=== PATIENT | female | born 1940 | race Caucasian/White ===

== ENCOUNTER 2018-01-30 11:56 | Outpatient (CLI) | payer MEDICARE, OTHER, SELFPAY ==
--- NOTE | 2018-01-30 11:57 | DI.RAD.S_ITS ---
PROCEDURE: PAIN L/S TRANSFORAMINAL INJECT INDICATIONS: Right L4/5 Radiculopathy with HNP FINDINGS: Fluoroscopic spot filming was performed to verify placement of spinal needles at the right L4-5 nerve root level(s), as labeled on the films. Appropriate location(s) of the needle tip(s) was confirmed by injection of iodinated contrast. IMPRESSION: Successful right L4 V nerve root localization. Dictated by: Marcos Torres M.D. on 01/30/2018 at 15:35 Approved by: Marcos Torres M.D. on 01/30/2018 at 15:36
[2018-01-30 12:52] VITALS: BP 192/84; PULSE 81; RESP 18; TEMP 36.1; O2SAT 98
--- NOTE | 2018-01-30 13:06 | P.PCN_ITS ---
Procedures Date/Time Date of procedure: 01/30/18 Time of procedure: 13:04 General Procedure description: PREOP DIAGNOSIS 1. FORMAINAL STENOSIS WITH LE SYMPTOMS POST OP DIAGNOSIS 1. FORMAINAL STENOSIS WITH LE SYMPTOMS PROCEDURES 1. FLUOROSCOPICALLY GUIDED CONTRAST CONTROLLED TRANSFORAMINAL EPIDURAL STEROID INJECTION - RIGHT L4/5 TFESI PHYSICIAN: Duglas Coleman DO INDICATIONS: Kiley is referred by LUIS MIGUEL Sandoval for treatment of Foraminal Stenosis with Right LE Symptoms FINDINGS Foraminal Nerve Root Compression secondary to disc disease and facet hypertrophy DESCRIPTION OF PROCEDURE: Following denial of allergy and review of potential side effects and complications, including, but not necessarily limited to, infection, allergic reaction, local tissue breakdown, stroke, temporary or permanent nerve injury, paralysis, and possible , the patient indicated that the patient understood and agreed to proceed. An informed consent document was signed by the patient, witnessed by a nurse, and placed in the patient's chart. Additionally, other treatment options including medications, modalities, and physical therapy were reviewed with the patient. In the prone position following sterile prep and drape of the lumbar region, the Right L4/5 posterior neuroforamen was identified fluoroscopically. The skin was anesthetized via a 25-gauge 1.5-inch needle with 1% lidocaine solution. At this point, a 25-gauge 3.5-inch spinal needle was atraumatically introduced and advanced under fluoroscopic guidance through the posterior Right L4/5 neuroforamen to approximately the anterior aspect of the canal. Depth was confirmed on lateral view. Following negative aspiration, injection of approximately 1.5 cc of Isovue 200 under live fluoroscopy in the AP view confirmed excellent flow along the nerve root, into the epidural space without vascular or intrathecal uptake observed Radiological data, including multiple fluoroscopic views of the lumbosacral spine, reveal a spinal needle at the Left L4/5 posterior neuroforamen. Subsequent views show flow of contrast material flowing superiorly and inferiorly along the nerve root confirming epidural flow. Subsequently, a test dose of 1.5 cc of 1% lidocaine solution was administered and patient was observed for two minutes for signs or symptoms of complications , including abdominal pain, shortness of breath, bilateral upper or lower extremity weakness, nausea and vomiting, prior to steroid injection. At this point, a total of 3 cc or 20 mg of dexamethasone and 80mg Depo Medrol was injected without incident. The patient was then transferred to the recovery area where they were observed for an appropriate time after the injection. The patient reported a VAS score of 7 prior to the procedure and a post-procedure VAS of 0. Total Fluoroscopy Time: 20.9 seconds Total Conscious Sedation Time: 24min POST OP INSTRUCTIONS The patient was provided a Pain Log to continue to record their response to the target-specific procedure prior to follow-up visit with their referring physician. Additionally, specific post-injection care instructions and a contact number to our office were provided if concerns arise regarding possible complications associated with the procedure are suspected. Duglas Coleman DO Complications: none
[2018-01-30 13:10] VITALS: BP 176/91; PULSE 79; RESP 21; O2SAT 100
[2018-01-30 13:16] VITALS: BP 180/87; PULSE 75; RESP 20; O2SAT 100
[2018-01-30] MEDS: BUPIVACAINE 0.25% (PF) 30 ML VIAL INJ (13:20)
[2018-01-30] MEDS: IOPAMIDOL 15 ML VIAL 3 ML INJ (13:20)
[2018-01-30] MEDS: methylPREDNISolone acetate 80 MG/ML VIAL INJ (13:20)
[2018-01-30] MEDS: DEXAMETHASONE 10 MG/ML VIAL 20 MG INJ (13:20)
[2018-01-30 13:21] VITALS: BP 162/67; PULSE 78; RESP 20; O2SAT 100
[2018-01-30 13:35] VITALS: BP 182/77; PULSE 70; RESP 20; O2SAT 100
[2018-01-30 13:42] VITALS: BP 182/95; PULSE 75; RESP 20; O2SAT 100
== END 2018-01-30 14:43 ==
LOC: RAD 11:56
PROVIDERS: PCP Physician Assistant Medical; Visit Provider Physical Medicine & Rehabilitation
DX: M48.061 Spinal stenosis, lumbar region without neurogenic claudication (principal); M54.17 Radiculopathy, lumbosacral region; M51.26 Other intervertebral disc displacement, lumbar region
CPT/HCPCS: 64483; J1040; J1100; J2250

== ENCOUNTER → 2018-06-13 18:04 | Outpatient (CLI) | payer MEDICARE, OTHER, SELFPAY ==
--- NOTE | 2018-06-13 18:11 | DI.MRI.S_ITS ---
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 In cases with scoliosis, additional coronal T2 fast spin echo may be performed. COMPARISON: [facility], , L-SPINE WITHOUT CONTRAST, 01/13/2017, 13:20. FINDINGS: Image quality: Excellent. Alignment and Curvature: There is normal bony alignment. Bone Marrow: Marrow is of normal overall signal. No acute vertebral body compression fractures. Spinal Cord: Conus medullaris terminates at the L1 level. Visualized cord demonstrates normal signal and size. Paraspinous Soft Tissues: No paravertebral masses. T12-L1: Normal appearance. L1-L2: Mild loss of disc height is seen. Loss of disc signal is seen. Mild to moderate disc bulge is seen, with a mild central disc protrusion. Minimal bilateral neural foraminal narrowing is seen. Minimal to mild central canal narrowing is seen. Stable from the prior study. L2-L3: Mild loss of disc height is seen. Loss of disc signal is seen. Moderate disc bulge is seen, with a mild central disc protrusion. There is mild to moderate bilateral neural foraminal narrowing seen. Moderate central canal narrowing is seen. A faintly seen annular fissure is present posteriorly, as on series 4 image 9. When comparison is made with the prior examination, these findings are similar. L3-L4: The disc height is well-preserved. Loss of disc signal is seen at this level. An annular fissure is present posteriorly, as on series 4 image 9. Moderate generalized disc bulge is seen. Moderate facet joint hypertrophy is seen. There is mild to moderate left-sided and mild right-sided neural foraminal narrowing seen. Moderate central canal narrowing is seen. Stable from the prior study. L4-L5: Moderate loss of disc height is seen. Loss of disc signal is seen. Moderate disc bulge is seen, which is eccentric to the right. There is a central disc extrusion seen, with inferior migration of disc material. There is an associated annular fissure seen, as on series 4 image 10. Moderate facet joint hypertrophy is seen. There is associated hypertrophy of the ligamentum flavum. There is moderate left-sided and moderate to severe right-sided neural foraminal narrowing seen. There is a degree of impingement seen upon the exiting right L4 nerve root. Moderate to severe central canal narrowing is seen. When compared to the prior examination, these findings are similar. L5-S1: The disc height is well-preserved. Loss of disc signal is seen at this level. Mild generalized disc bulge is seen. Mild to moderate facet hypertrophy is seen. No significant neural foraminal or central canal narrowing are seen. Stable from the prior study. IMPRESSION: Multiple levels of lumbar spine degenerative changes are seen, which are not significantly progressed compared to the prior MRI. Dictated by: Luiz Baron M.D. on 06/14/2018 at 8:24 Approved by: Luiz Baron M.D. on 06/14/2018 at 8:30
== END ==
PROVIDERS: Family Provider Physician Assistant Medical; PCP Physician Assistant Medical; Visit Provider Physical Medicine & Rehabilitation
DX: M51.26 Other intervertebral disc displacement, lumbar region (principal)
CPT/HCPCS: 72148

== ENCOUNTER → 2018-07-20 15:58 | Outpatient (CLI) | payer MEDICARE, OTHER, SELFPAY ==
--- NOTE | 2018-07-20 16:02 | DI.RAD.S_ITS ---
PROCEDURE: XR HIP W PEL IF DONE RT 2V INDICATIONS: OTHER SPONDYLOSIS WITH MYLEPOTHY CERVICAL REGION TECHNIQUE: AP pelvis with lateral view(s) of the right hip(s). COMPARISON: None. FINDINGS: Bones: No fractures or dislocations. Pelvic ring appears intact. No suspicious bony lesions. There is mild narrowing of the bilateral hip joints. Soft tissues: The visualized bowel gas pattern is normal. No suspicious soft tissue calcifications. IMPRESSION: Mild degenerative change. Dictated by: Peggy Zhu M.D. on 07/20/2018 at 16:56 Approved by: Peggy Zhu M.D. on 07/20/2018 at 16:57
--- NOTE | 2018-07-20 16:03 | DI.MRI.S_ITS ---
PROCEDURE: MR CERVICAL SPINE WO CON INDICATIONS: OTHER SPONDYLOSIS WITH MYLOPATHY CERVICAL REGION TECHNIQUE: Noncontrast sagittal T1 spin echo and T2 fast spin echo, sagittal STIR, foraminal oblique sagittal T2 fast spin echo, and axial gradient echo or T2 fast spin echo through the cervical spine. COMPARISON: [facility], MR, MR LUMBAR SPINE WO CON, 06/13/2018, 18:42. FINDINGS: Image quality: Excellent. Alignment and Curvature: There is normal bony alignment. Bone Marrow: Marrow demonstrates normal overall signal. Spinal Cord: Visualized spinal cord has normal size and signal. No cerebellar tonsillar herniation. Paraspinous Soft Tissues: No paravertebral masses. Prevertebral soft tissues are normal in thickness. C2-C3: The disc height is well-preserved. Loss of disc signal is seen at this level. There is minimal disc osteophyte complex seen, the central disc osteophyte protrusion, as on series 4 image 13. There is mild left-sided and no right-sided neural foraminal narrowing seen. No significant central canal narrowing is seen. C3-C4: Normal appearance. C4-C5: The disc height is well-preserved. Loss of disc signal is seen at this level. A mild degree of generalized disc osteophyte complex is seen. Mild facet joint hypertrophy is seen. There is mild right-sided and no left-sided neural foraminal narrowing seen. No central canal narrowing is seen. C5-C6: Mild loss of disc height is seen. Loss of disc signal is seen. A mild degree of generalized disc osteophyte complex is seen. Mild facet joint hypertrophy is seen. There is moderate to severe bilateral neural foraminal narrowing seen. Mild central canal narrowing is seen. C6-C7: The disc height is well-preserved. Loss of disc signal is seen at this level. Mild to moderate disc osteophyte complex is seen. Bhyw-wn-sbohjzxt facet hypertrophy is seen. There is mild to moderate left-sided and no significant right-sided neural foraminal narrowing seen. Mild central canal narrowing is seen. C7-T1: Normal appearance. IMPRESSION: Cervical spine degenerative changes are seen, which are most prominent at the C5-C6 level, where there is moderate to severe bilateral neural foraminal narrowing seen. Dictated by: Luiz Baron M.D. on 07/20/2018 at 16:09 Approved by: Luiz Baron M.D. on 07/20/2018 at 16:13
== END ==
PROVIDERS: PCP Physician Assistant Medical; Visit Provider Neurological Surgery
DX: M47.12 Other spondylosis with myelopathy, cervical region (principal); M50.022 Cervical disc disorder at C5-C6 level with myelopathy; M48.02 Spinal stenosis, cervical region; M16.0 Bilateral primary osteoarthritis of hip
CPT/HCPCS: 72141; 73502

== ENCOUNTER → 2018-11-07 12:16 | Outpatient (CLI) | payer MEDICARE, OTHER, SELFPAY ==
--- NOTE | 2018-11-07 | DI.MRI.S_ITS ---
PROCEDURE: MR LUMBAR SPINE WO CON INDICATIONS: Radiculopathy, lumbar region TECHNIQUE: Noncontrast sagittal T1 spin echo and T2 fast echo, sagittal STIR, axial T1 and T2 fast spin echo through the lumbar spine. In cases with scoliosis, additional coronal T2 fast spin echo may be performed. COMPARISON: [facility], MR, MR LUMBAR SPINE WO CON, 06/13/2018, 18:42. FINDINGS: Image quality: Excellent. Alignment and Curvature: Trace retrolisthesis of L3 on L4.. Bone Marrow: Marrow is of normal overall signal. No acute vertebral body compression fractures. Spinal Cord: Conus medullaris terminates at the L1 level. Visualized cord demonstrates normal signal and size. Paraspinous Soft Tissues: No paravertebral masses. Postsurgical changes related to right L4-L5 laminotomy. There is nonspecific, dependent posterior subcutaneous soft tissue edema from level of L2-L5. L1-L2: Broad-based posterior disc bulge bilateral facet arthropathy. No high-grade canal stenosis. Lateral recesses appear patent bilaterally. No foraminal narrowing. L2-L3: Broad-based posterior disc bulge bilateral facet arthropathy with mild canal stenosis. Moderate effacement of both lateral recesses although symmetric appearance and appears grossly unchanged. Mild left foraminal narrowing. No definite right foraminal stenosis L3-L4: Broad-based posterior disc bulge and bilateral facet arthropathy with ligamentum flavum hypertrophy. Mild canal narrowing which appears grossly unchanged. Feep-yp-lmsjphks effacement of both lateral recesses appear symmetric and grossly unchanged. Mild right and xywr-jq-rdvbnmpy left foraminal narrowing, no interval change. L4-L5: Broad-based posterior disc bulge bilateral facet arthropathy. Improved appearance with mild residual canal narrowing. There is also improved appearance of the lateral recesses although some partial effacement remains, left slightly greater than right. Moderate right and mild left foraminal stenoses, no interval change L5-S1: Mild broad-based posterior disc bulge and bilateral facet arthropathy. No high-grade canal stenosis. Lateral recesses appear patent. No definite foraminal narrowing. IMPRESSION: Interval postsurgical changes related to L4-L5 right laminotomy. Improved L4-L5 central canal and subarticular narrowing since prior study. Remainder of the examination grossly unchanged since 06/13/18. Dictated by: Carlos Benitez M.D. on 11/07/2018 at 13:37 Approved by: Carlos Benitez M.D. on 11/07/2018 at 13:48
== END ==
PROVIDERS: PCP Physician Assistant Medical
DX: M51.16 Intervertebral disc disorders with radiculopathy, lumbar region (principal); M51.17 Intervertebral disc disorders with radiculopathy, lumbosacral region; M47.26 Other spondylosis with radiculopathy, lumbar region; M47.27 Other spondylosis with radiculopathy, lumbosacral region; M48.061 Spinal stenosis, lumbar region without neurogenic claudication
CPT/HCPCS: 72148

== ENCOUNTER 2018-12-12 07:44 | Day surgery (SDC) | payer MEDICARE, OTHER, SELFPAY ==
--- NOTE | 2018-12-06 17:05 | PM.PREOP ---
Pre-operative Note Interval Note History & Physical reviewed/Exam performed by Physician: Yes Changes to H&P: No
--- NOTE | 2018-12-12 08:08 | PM.OP.1 ---
Operative Date/Time/Diagnoses Date of procedure: 12/12/18 Time of procedure: 09:45 Procedure & Clinicians Procedure: Preoperative diagnoses: 1. Left nuclear sclerotic cataract 2. Astigmatism which is to be corrected with a toric intraocular lens implant. 3. HTN Postoperative diagnoses: 1. Cataract removal with phacoemulsification with toric posterior chamber intraocular lens implant placed. Procedure: Phacoemulsification with posterior chamber toric intraocular lens implant. Surgeon: Kiley Meza MD Complications: None Specimen: None Implant: [id number]+22.5 [place] 130 Blood loss: None Anesthesia: Retrobulbar with monitored standby Description of procedure: Patient presents with a complaint of decreased vision due to cataract which is affecting activities of daily living. The patient wants surgery to improve vision and astigmatism. The patient was taken to the operating room and proparacaine drops placed. Indelible ink read were placed at the 90 and 180 degree meridian. The patient was placed on the operating room table and given IV sedation. A retrobulbar block insert consisting of 6 cc of 2% xylocaine without epinephrine mixed half and half with 0.5% Marcaine with 1 cc of hyaluronidase added is placed between the medial and lateral 1/3 of the inferior orbital rim. Lid akinesia is obtain with 1% xylocaine with epinephrine infiltrated along the lid margin. The eye is manually massaged for 30 sec, prepped using Betadine solution, and draped in the usual sterile fashion. Temporal approach was made, a 1 mm side-port incision was made 90? from the proposed corneal wound. Phenylephrine 1.5% mixed with 1% xylocaine 0.2 cc was placed into the anterior chamber. Viscoat followed by Luz was then placed. A 2.6 mm clear incision with a 2.6 mm blade was placed at the 170 degree meridian. A 360 degree capsulorrhexis style capsulotomy was then performed with a cystitome needle on a Healon. Hydrodelineation and hydrodissection were performed. The phacoemulsification unit is introduced, and sculpting used to groove the central lens. It is then removed in chopping mode. Epi nucleus is removed with epinuclear mode and irrigation aspiration was used to remove the peripheral cortex. The posterior capsule is polished. The intraocular lens is selected, inspected, power confirmed, and placed in the posterior chamber at the desired meridian of 130 degrees.. The pupil was not constricted. The wound was stromally hydrated and tested for leaks, there was none and it was left sutureless. Vigamox 0.1 cc was placed into the anterior chamber. Kenalog 0.2 cc was placed in the superior subconjunctival space. A drop of antibiotic and was placed and the eye was patched and shielded. The patient was stable and returned to the recovery room in excellent condition. Dictated by: Kiley Meza MD Copy to: [facility]
[2018-12-12 08:52] VITALS: BP 162/75; PULSE 73; RESP 16; TEMP 36.6; O2SAT 100; BMI 22.4
[2018-12-12] MEDS: PROPARACAINE 0.5% OPHTH SOL 2 DROPS EYE-OP ×2 (08:52→10:21)
[2018-12-12] MEDS: CATARACT EYE COMPOUND (10 DROPS/SYRINGE) 3 DROPS EYE-OP (08:54)
[2018-12-12] MEDS: HYALURONATE SODIUM 10 MG/ML SYRINGE INJ (10:17)
[2018-12-12] MEDS: CHONDROIDTIN/SOD HYALURONATE 1.05 ML SYRINGE INTRAOCULA (10:17)
[2018-12-12] MEDS: BALANCED SALT IRRIG SOLN NO.2 15 ML IRR (10:17)
[2018-12-12] MEDS: LIDOCAINE 1% W/EPI INJ 20 ML INJ (10:17)
[2018-12-12] MEDS: MOXIFLOXACIN OPHTH DROPS 3 ML BOTTLE 2 DROPS INJ (10:17)
[2018-12-12] MEDS: PHENYLEPHRINE/LIDOCAINE VIAL (OR) 0.2 ML EYE-OP (10:18)
[2018-12-12] MEDS: NEOMYCIN/POLY/DEX OPHTH OINT 1 APPLIC EYE-LEFT (10:18)
[2018-12-12] MEDS: OFLOXACIN 0.3% OPHTH 5 ML 2 DROPS EYE-LEFT (10:18)
[2018-12-12] MEDS: LIDOCAINE 2% 4 ML, BUPIVACAINE 0.5% (PF) 4 ML, HYALURONIDASE 150 UNIT INJ (10:19)
[2018-12-12] MEDS: TRIAMCINOLONE 50 MG/5 ML VIAL INJ (10:19)
[2018-12-12] MEDS: BALANCED SALT IRRIG SOLN NO.2 500 ML, EPINEPHrine 1 MG IRR (10:20)
[2018-12-12 10:51] VITALS: BP 176/79; PULSE 74; RESP 16; TEMP 36; O2SAT 100
== END 2018-12-12 10:57 | disposition home or self-care (01) ==
LOC: OR 07:46
PROVIDERS: PCP Physician Assistant Medical; Visit Provider Ophthalmology
DX: H25.12 Age-related nuclear cataract, left eye (principal); H52.202 Unspecified astigmatism, left eye; I10 Essential (primary) hypertension
CPT/HCPCS: J0171; J2704; J3301; J3470; V2787

== ENCOUNTER 2018-12-26 07:37 | Day surgery (SDC) | payer MEDICARE, OTHER, SELFPAY ==
--- NOTE | 2018-12-25 14:09 | PM.PREOP ---
Pre-operative Note Interval Note History & Physical reviewed/Exam performed by Physician: Yes Changes to H&P: No
--- NOTE | 2018-12-26 08:07 | PM.OP.1 ---
Operative Date/Time/Diagnoses Date of procedure: 12/26/18 Time of procedure: 09:45 Procedure & Clinicians Procedure: Preoperative diagnoses: 1. Right nuclear sclerotic cataract 2. Astigmatism which is to be corrected with a toric intraocular lens implant. 3. Hypertension. Postoperative diagnoses: 1. Cataract removal with phacoemulsification with toric posterior chamber intraocular lens implant placed. Procedure: Phacoemulsification with posterior chamber toric intraocular lens implant. Surgeon: Kiley Meza MD Complications: None Specimen: None Implant: [id number] +23.5 [place] 050. Blood loss: None Anesthesia: Retrobulbar with monitored standby Description of procedure: Patient presents with a complaint of decreased vision due to cataract which is affecting activities of daily living. The patient wants surgery to improve vision and astigmatism. The patient was taken to the operating room and proparacaine drops placed. Indelible ink read were placed at the 90 and 180 degree meridian. The patient was placed on the operating room table and given IV sedation. A retrobulbar block consisting of 6 cc of 2% xylocaine without epinephrine mixed half and half with 0.5% Marcaine with 1 cc of hyaluronidase added is placed between the medial and lateral 1/3 of the inferior orbital rim. Lid akinesia is obtain with 1% xylocaine with epinephrine infiltrated along the lid margin. The eye is manually massaged for 30 sec, prepped using Betadine solution, and draped in the usual sterile fashion. Temporal approach was made, a 1 mm side-port incision was made 90? from the proposed corneal wound. Phenylephrine 1.5% mixed with 1% xylocaine 0.2 cc was placed into the anterior chamber. Viscoat followed by Luz was then placed. A 2.6 mm clear incision with a 2.6 mm blade was placed at the 170 degree meridian. A 360 degree capsulorrhexis style capsulotomy was then performed with a cystitome needle on a Healon. Hydrodelineation and hydrodissection were performed. The phacoemulsification unit is introduced, and sculpting used to groove the central lens. It is then removed in chopping mode. Epi nucleus is removed with epinuclear mode and irrigation aspiration was used to remove the peripheral cortex. The posterior capsule is polished. The intraocular lens is selected, inspected, power confirmed, and placed in the posterior chamber at the desired meridian of 050 degrees. The pupil was not constricted. The wound was stromally hydrated and tested for leaks, there was none and it was left sutureless. Vigamox 0.1 cc was placed into the anterior chamber. Kenalog 0.2 cc was placed in the superior subconjunctival space. A drop of antibiotic and was placed and the eye was patched and shielded. The patient was stable and returned to the recovery room in excellent condition. Dictated by: Kiley Meza MD Copy to: [facility]
[2018-12-26] MEDS: PROPARACAINE 0.5% OPHTH SOL 2 DROPS EYE-OP (08:50)
[2018-12-26 08:52] VITALS: BP 140/71; PULSE 74; RESP 15; TEMP 36.7; O2SAT 100
[2018-12-26] MEDS: CATARACT EYE COMPOUND (10 DROPS/SYRINGE) 3 DROPS EYE-OP (08:54)
[2018-12-26 08:55] VITALS: BMI 22.2
[2018-12-26] MEDS: BALANCED SALT IRRIG SOLN NO.2 500 ML, EPINEPHrine 1 MG IRR (09:53)
[2018-12-26] MEDS: NEOMYCIN/POLY/DEX OPHTH OINT 1 APPLIC EYE-RIGHT (09:53)
[2018-12-26] MEDS: OFLOXACIN 0.3% OPHTH 5 ML 2 DROPS EYE-RIGHT (09:53)
[2018-12-26] MEDS: CHONDROIDTIN/SOD HYALURONATE 1.05 ML SYRINGE INTRAOCULA (09:54)
[2018-12-26] MEDS: BALANCED SALT IRRIG SOLN NO.2 15 ML IRR (09:54)
[2018-12-26] MEDS: HYALURONATE SODIUM 10 MG/ML SYRINGE INJ (09:54)
[2018-12-26] MEDS: PHENYLEPHRINE/LIDOCAINE VIAL (OR) 0.2 ML EYE-OP (09:57)
[2018-12-26] MEDS: MOXIFLOXACIN OPHTH DROPS 3 ML BOTTLE 2 DROPS INJ (09:58)
[2018-12-26] MEDS: TRIAMCINOLONE 50 MG/5 ML VIAL INJ (09:58)
[2018-12-26] MEDS: LIDOCAINE 2% 4 ML, BUPIVACAINE 0.5% (PF) 4 ML, HYALURONIDASE 150 UNIT INJ (09:59)
[2018-12-26] MEDS: LIDOCAINE 1% W/EPI INJ 20 ML INJ (09:59)
[2018-12-26 10:21] VITALS: BP 140/76; PULSE 68; RESP 15; TEMP 36.3; O2SAT 100
== END 2018-12-26 10:25 | disposition home or self-care (01) ==
LOC: OR 07:40
PROVIDERS: PCP Physician Assistant Medical; Visit Provider Ophthalmology
DX: H25.11 Age-related nuclear cataract, right eye (principal); H52.201 Unspecified astigmatism, right eye; I10 Essential (primary) hypertension
CPT/HCPCS: J0171; J2250; J2704; J3010; J3301; J3470; V2787

== ENCOUNTER 2019-03-19 12:42 | Outpatient (CLI) | payer MEDICARE, OTHER, SELFPAY ==
[2019-03-19] VITALS (7 sets, daily range): BP systolic 153–179; BP diastolic 64–85; PULSE 67–82; RESP 16–18; TEMP 36.3; O2SAT 97–100
--- NOTE | 2019-03-19 12:44 | DI.RAD.S_ITS ---
PROCEDURE: PAIN L/SI FACET INJ/BLK 1STL INDICATIONS: SPONDYLOSIS FINDINGS: Fluoroscopic spot filming was performed to verify placement of spinal needles at the L4-L5 and L5-S1 level(s), as labeled on the films. Appropriate location(s) of the needle tip(s) was confirmed by injection of iodinated contrast. IMPRESSION: Fluoroscopy support for pain management. Dictated by: Phylicia Shen M.D. on 03/19/2019 at 14:44 Approved by: Phylicia Shen M.D. on 03/19/2019 at 14:44
[2019-03-19] MEDS: MIDAZOLAM 5 MG/5 ML VIAL IV (13:59)
[2019-03-19] MEDS: fentaNYL 100 MCG/2 ML INJ 50 MCG IV (13:59)
[2019-03-19] MEDS: IOPAMIDOL 15 ML VIAL 3 ML INJ (14:07)
[2019-03-19] MEDS: BUPIVACAINE 0.5% (PF) VIAL 2 ML INJ (14:07)
[2019-03-19] MEDS: BETAMETHASONE 30 MG/5 ML MDV 12 MG INJ (14:07)
--- NOTE | 2019-03-19 14:08 | PC.NURSE ---
ASSISTING PT OFF TABLE AND TRANSPORTING TO POST PROC AREA IN STABLE CONDITION.
--- NOTE | 2019-03-19 14:11 | PM.PROC.1 ---
Procedures Date/Time Date of procedure: 03/19/19 Time of procedure: 14:11 General Procedure description: PREOP DIAGNOSIS 1. FACET ARTHROPATHY, 2. AXIAL LBP, 3. MULTILEVEL DDD, POST OP DIAGNOSIS 1. FACET ARTHROPATHY, 2. AXIAL LBP, 3. MULTILEVEL DDD, PROCEDURES 1. FLUORSCOPICALLY GUIDED CONTRAST CONTROLLED FACET JOINT INJECTIONS RIGHT L4/5, L5/S1 SURGEON: Duglas Coleman, DO INDICATIONS Kiley is referred by JANINE Sandoval for treatment of Axial LBP FINDINGS Multilevel Facet Arthropathy with Clinically significant axial LBP DESCRIPTION OF PROCEDURE Fluoroscopically guided, contrast-controlled right L4/5, L5/S1 facet joint injections. Following review of allergy and review of potential side effects and complications, including, but not necessarily limited to, infection, allergic reaction, local tissue breakdown, stroke, temporary or permanent nerve injury, paralysis, and possible , the patient indicated that the patient understood and agreed to proceed. An informed consent document was signed by the patient, witnessed by a nurse, and placed in the patient's chart. Additionally, other treatment options including medications, modalities, and physical therapy were reviewed with the patient. After review of previous anaesthesic history and IV conscious sedation the patient was deemed safe to proceed with todays procedure with IV conscious sedation as ASA class II designation. Safety time-out was performed to confirm patient ID, procedure to be performed and site of procedure. IV sedation was accomplished with a combination of 2mg of Versed and 50mcg of Fentanyl was administered by the RN after DO order, titrated to patient comfort during the course of the procedure while the patient remained responsive to all verbal commands. In the prone position, following sterile prep and drape of the lumbar region, the posterior aspect of the right L4/5, L5/S1 facet joints were identified fluoroscopically. The skin was anesthetized via a 25-gauge 1.5-inch needle with 1% lidocaine solution into the corresponding facet joints. At this point, a 22-gauge 3.5-inch spinal needle was atraumatically introduced and advanced under fluoroscopic guidance into the corresponding facet joints. Following negative aspiration, injections of approximately 0.2-cc of Isovue 200 confirmed interarticular placement without vascular uptake. Radiological data, including multiple fluoroscopic views of the lumbosacral spine, reveal a spinal needle at the right L4/5, L5/S1 facet joints. Subsequent views show flow of contrast material both superiorly and inferiorly within the joint space without vascular or intrathecal uptake. At this point, a total of 0.5 cc including a mixture of 0.25cc Marcaine and 0.25cc betamethasone was injected without complication into each of the corresponding facet joints. The procedure tolerated the procedure well without signs or symptoms of complications prior to transfer to the recovery area continued monitoring without incident. The patient was then transferred to the recovery area where they were observed for an appropriate period of time after the injection. The patient reported a VAS score of 7 prior to the procedure and a post-procedure VAS of 0. Total Fluoroscopy Time: 12.7 seconds Total Conscious Sedation Time: 24min POST OP INSTRUCTIONS The patient was provided a Pain Log to continue to record their response to the target-specific procedure prior to follow-up visit with their referring physician. Additionally, specific post-injection care instructions and a contact number to our office were provided if concerns arise regarding possible complications associated with the procedure are suspected. Duglas Coleman, Complications: none
--- NOTE | 2019-03-19 14:15 | PC.NURSE ---
Pt returned from procedure awake and alert via wheelchair, pt able to transfer from w/c to chair with standby assist. Resumed monitoring from Norma HERNANDEZ.
--- NOTE | 2019-03-19 14:36 | P.PCN_ITS ---
Procedures Date/Time Date of procedure: 03/19/19 Time of procedure: 14:11 General Procedure description: PREOP DIAGNOSIS 1. FACET ARTHROPATHY, 2. AXIAL LBP, 3. MULTILEVEL DDD, POST OP DIAGNOSIS 1. FACET ARTHROPATHY, 2. AXIAL LBP, 3. MULTILEVEL DDD, PROCEDURES 1. FLUORSCOPICALLY GUIDED CONTRAST CONTROLLED FACET JOINT INJECTIONS RIGHT L4/5, L5/S1 SURGEON: Duglas Coleman, DO INDICATIONS Kiley is referred by JANINE Sandoval for treatment of Axial LBP FINDINGS Multilevel Facet Arthropathy with Clinically significant axial LBP DESCRIPTION OF PROCEDURE Fluoroscopically guided, contrast-controlled right L4/5, L5/S1 facet joint in jections. Following review of allergy and review of potential side effects and complications, including, but not necessarily limited to, infection, allergic reaction, local tissue breakdown, stroke, temporary or permanent nerve injury, paralysis, and possible , the patient indicated that the patient understood and agreed to proceed. An informed consent document was signed by the patient, witnessed by a nurse, and placed in the patient's chart. Additionally, other treatment options including medications, modalities, and physical therapy were reviewed with the patient. After review of previous anaesthesic history and IV conscious sedation the patient was deemed safe to proceed with todays procedure with IV conscious sedation as ASA class II designation. Safety time-out was performed to confirm patient ID, procedure to be performed and site of procedure. IV sedation was accomplished with a combination of 2mg of Versed and 50mcg of Fentanyl was administered by the RN after DO order, titrated to patient comfort during the course of the procedure while the patient remained responsive to all verbal commands. In the prone position, following sterile prep and drape of the lumbar region, the posterior aspect of the right L4/5, L5/S1 facet joints were identified fluoroscopically. The skin was anesthetized via a 25-gauge 1.5-inch needle with 1% lidocaine solution into the corresponding facet joints. At this point, a 22- gauge 3.5-inch spinal needle was atraumatically introduced and advanced under fluoroscopic guidance into the corresponding facet joints. Following negative aspiration, injections of approximately 0.2-cc of Isovue 200 confirmed interarticular placement without vascular uptake. Radiological data, including multiple fluoroscopic views of the lumbosacral spine, reveal a spinal needle at the right L4/5, L5/S1 facet joints. Subsequent views show flow of contrast material both superiorly and inferiorly within the joint space without vascular or intrathecal uptake. At this point, a total of 0.5 cc including a mixture of 0.25cc Marcaine and 0.25cc betamethasone was injected without complication into each of the corresponding facet joints. The procedure tolerated the procedure well without signs or symptoms of complications prior to transfer to the recovery area continued monitoring without incident. The patient was then transferred to the recovery area where they were observed for an appropriate period of time after the injection. The patient reported a VAS score of 7 prior to the procedure and a post-procedure VAS of 0. Total Fluoroscopy Time: 12.7 seconds Total Conscious Sedation Time: 24min POST OP INSTRUCTIONS The patient was provided a Pain Log to continue to record their response to the target-specific procedure prior to follow-up visit with their referring physician. Additionally, specific post-injection care instructions and a contact number to our office were provided if concerns arise regarding possible comp lications associated with the procedure are suspected. Duglas Coleman DO Complications: none
== END 2019-03-19 14:35 ==
LOC: RAD 12:43
PROVIDERS: PCP Physician Assistant Medical; Visit Provider Physical Medicine & Rehabilitation
DX: M47.817 Spondylosis without myelopathy or radiculopathy, lumbosacral region (principal); M47.27 Other spondylosis with radiculopathy, lumbosacral region; M96.1 Postlaminectomy syndrome, not elsewhere classified
CPT/HCPCS: 64493; 64494; 99152; J0702; J2250; J3010

== ENCOUNTER 2019-05-02 12:51 | Outpatient (CLI) | payer MEDICARE, OTHER, SELFPAY ==
[2019-05-02] VITALS (8 sets, daily range): BP systolic 147–179; BP diastolic 43–87; PULSE 66–80; RESP 16; TEMP 36.1; O2SAT 97–100
--- NOTE | 2019-05-02 12:53 | DI.RAD.S_ITS ---
PROCEDURE: PAIN L/S TRANSFORAMINAL INJECT INDICATIONS: INTERVERTEBRAL DISC DISPLACEMENT FINDINGS: Fluoroscopic spot filming was performed to verify placement of spinal needles at the L5-S1 level(s), as labeled on the films. Appropriate location(s) of the needle tip(s) was confirmed by injection of iodinated contrast. IMPRESSION: Fluoroscopy for pain management. Dictated by: Phylicia Shen M.D. on 05/02/2019 at 14:50 Approved by: Phylicia Shen M.D. on 05/02/2019 at 14:50
--- NOTE | 2019-05-02 13:09 | P.PCN_ITS ---
Procedures Date/Time Date of procedure: 05/02/19 Time of procedure: 14:07 General Procedure description: PREOP DIAGNOSIS 1. FORMAINAL STENOSIS WITH LE SYMPTOMS, POST OP DIAGNOSIS 1. FORMAINAL STENOSIS WITH LE SYMPTOMS, PROCEDURES 1.FLUOROSCOPICALLY GUIDED CONTRAST CONTROLLED TRANSFORAMINAL EPIDURAL STEROID INJECTION - RIGHT L5/S1 TFESI PHYSICIAN: Duglas Coleman DO INDICATIONS: Kiley is referred by JANINE Sandoval for treatment of Foraminal Stenosis with right LE Symptoms FINDINGS Foraminal Nerve Root Compression secondary to disc disease and facet hypertrophy DESCRIPTION OF PROCEDURE Following review of allergy and review of potential side effects and complications, including, but not necessarily limited to, infection, allergic reaction, local tissue breakdown, stroke, temporary or permanent nerve injury, paralysis, and possible , the patient indicated that the patient understood and agreed to proceed. An informed consent document was signed by the patient, witnessed by a nurse, and placed in the patient's chart. Additionally, other treatment options including medications, modalities, and physical therapy were reviewed with the patient. After review of previous anaesthesic history and IV conscious sedation the patient was deemed safe to proceed with todays procedure with IV conscious sedation as ASA class II designation. Safety time-out was performed to confirm patient ID, procedure to be performed and site of procedure. IV sedation was accomplished with a combination of 2mg of Versed and 50mcg of Fentanyl was administered by the RN after DO order, titrated to patient comfort during the course of the procedure while the patient remained responsive to all verbal commands In the prone position following sterile prep and drape of the lumbar region, the right L5/S1 posterior neuroforamen was identified fluoroscopically. The skin was anesthetized via a 25-gauge 1.5-inch needle with 1% lidocaine solution. At this point, a 25-gauge 3.5-inch spinal needle was atraumatically introduced and advanced under fluoroscopic guidance through the posterior right L5/S1 neuroforamen to approximately the anterior aspect of the canal. Depth was confirmed on lateral view. Following negative aspiration, injection of approximately 1.5 cc of Isovue 200 under live fluoroscopy in the AP view confirmed excellent flow along the nerve root, into the epidural space without vascular or intrathecal uptake observed Radiological data, including multiple fluoroscopic views of the lumbosacral spine, reveal a spinal needle at the right L5/S1 posterior neuroforamen. Subsequent views show flow of contrast material flowing superiorly and inferiorly along the nerve root confirming epidural flow. Subsequently, a test dose of 1.5 cc of 1% lidocaine solution was administered and patient was observed for two minutes for signs or symptoms of complications, including abdominal pain, shortness of breath, bilateral upper or lower extremity weakness, nausea and vomiting, prior to steroid injection. At this po int, a total of 2cc or 20mg of dexamethasone was injected without incident. The procedure tolerated the procedure well without signs or symptoms of complications prior to transfer to the recovery area continued monitoring without incident. The patient was then transferred to the recovery area where they were observed for an appropriate time after the injection. The patient reported a VAS score of 7 prior to the procedure and a post-procedure VAS of 0. Total Fluoroscopy Time: 20.9 seconds Total Conscious Sedation Time: 24min POST OP INSTRUCTIONS The patient was provided a Pain Log to continue to record their response to the target-specific procedure prior to follow-up visit with their referring physician. Additionally, specific post-injection care instructions and a contact number to our office were provided if concerns arise regarding possible complications associated with the procedure are suspected. Duglas Coleman DO Complications: none
[2019-05-02] MEDS: fentaNYL 100 MCG/2 ML INJ 50 MCG IV (13:53)
[2019-05-02] MEDS: MIDAZOLAM 5 MG/5 ML VIAL IV (13:53)
--- NOTE | 2019-05-02 14:01 | PC.NURSE ---
ASSISTING PT OFF TABLE AND TRANSPORTING TO POST PROC AREA IN STABLE CONDITION. PASSING CARE OF PT OFF TO Janet LEYVA RN
[2019-05-02] MEDS: DEXAMETHASONE 10 MG/ML VIAL 20 MG INJ (14:03)
[2019-05-02] MEDS: IOPAMIDOL 15 ML VIAL 3 ML INJ (14:03)
[2019-05-02] MEDS: BUPIVACAINE 0.25% (PF) VIAL 2 ML INJ (14:03)
[2019-05-02] MEDS: BETAMETHASONE 30 MG/5 ML MDV 6 MG INJ (14:03)
--- NOTE | 2019-05-02 15:15 | PC.NURSE ---
patient back from procedure via w/c ar 1410. patient alert and able to transfer from w/ to chair with sbo. this nurse taking over monitoring patient.
== END 2019-05-02 15:15 | disposition home or self-care (01) ==
LOC: RAD 12:52
PROVIDERS: PCP Physician Assistant Medical; Visit Provider Physical Medicine & Rehabilitation
DX: M48.07 Spinal stenosis, lumbosacral region (principal); M51.17 Intervertebral disc disorders with radiculopathy, lumbosacral region; M96.1 Postlaminectomy syndrome, not elsewhere classified
CPT/HCPCS: 64483; 99152; J0702; J1100; J2250; J3010

== ENCOUNTER 2019-08-08 09:14 | Outpatient (CLI) | payer MEDICARE, OTHER, SELFPAY ==
--- NOTE | 2019-08-08 09:16 | DI.RAD.S_ITS ---
PROCEDURE: PAIN SI JOINT INJECTION INDICATIONS: SACROCOCCYGEAL DISORDER FINDINGS: Fluoroscopic spot filming was performed to verify placement of spinal needles at the right SI joint level(s), as labeled on the films. Appropriate location(s) of the needle tip(s) was confirmed by injection of iodinated contrast. IMPRESSION: Fluoroscopy guidance for pain management procedure. Dictated by: Phylicia Shen M.D. on 08/08/2019 at 13:35 Approved by: Phylicia Shen M.D. on 08/08/2019 at 13:36
[2019-08-08 10:55] VITALS: BP 155/71; PULSE 66; RESP 16; O2SAT 100
[2019-08-08 11:21] VITALS: BP 135/65; PULSE 80; RESP 16; O2SAT 100
[2019-08-08] MEDS: MIDAZOLAM 5 MG/5 ML VIAL IV (11:22)
[2019-08-08] MEDS: fentaNYL 100 MCG/2 ML INJ 50 MCG IV (11:23)
[2019-08-08] MEDS: IOPAMIDOL 15 ML VIAL 3 ML INJ (11:25)
[2019-08-08 11:26] VITALS: BP 110/65; PULSE 75; RESP 16; O2SAT 100
[2019-08-08] MEDS: BETAMETHASONE 30 MG/5 ML MDV 12 MG INJ (11:26)
[2019-08-08] MEDS: BUPIVACAINE 0.5% (PF) VIAL 2 ML INJ (11:26)
--- NOTE | 2019-08-08 11:27 | PC.NURSE ---
ASSISTING PT OFF TABLE AND TRANSPORTING TO POST PROC AREA IN STABLE CONDITION. PASSING RN CARE OF PT OFF TO MEGHAN Tristan RN. VERSED AND FENTANYL PREPARED AND ADMINSTERED BY THIS RN. ALL OTHER MEDS PREPARED AND ADMINISTERED BY DR. CARLSON.
--- NOTE | 2019-08-08 11:32 | PM.PROC.1 ---
Procedures Date/Time Date of procedure: 08/08/19 Time of procedure: 11:32 General Procedure description: PREOP Dx: Sacroiliac joint pain/DJD POST OP DX: Sacroiliac Joint Pain/DJD Procedures: Fluoroscopic guided contrast controlled right sacroiliac joint injection Physician: Duglas Coleman D.O. Indications: Kiley is referred by JANINE Sandoval for treatment of right sacroiliac joint DJD Description of procedure Fluoroscopic guided, contrast controlled right sacroiliac joint injection Following review of allergies and review of potential side effects and complications, including, but not necessarily limited to, infection, allergic reaction, local tissue breakdown, temporary as well as permanent nerve injury, paralysis, stroke and possible , the patient indicated that they understood and agreed to proceed. An informed consent was signed by the patient, witnessed by a nurse, and placed in the patient's chart. Additionally, other treatment options including modalities, medications, and physical therapy were reviewed with the patient. After review of previous anaesthesic history and IV conscious sedation the patient was deemed safe to proceed with todays procedure with IV conscious sedation as ASA class II designation. Safety time-out was performed to confirm patient ID, procedure to be performed and site of procedure. IV sedation was accomplished with a combination of 2mg of Versed and 50mcg of Fentanyl was administered by the RN after DO order, titrated to patient comfort during the course of the procedure while the patient remained responsive to all verbal commands In the prone position following sterile prep and drape of the pelvic region, the hyper lucency on in the inferior aspect of the sacroiliac joint was identified fluoroscopically the skin was anesthetized be a 25 gauge 1 eventual with approximately 2 cc of 1% lidocaine solution. At this point, a 22 gauge 3in spinal needle was atraumatically introduced and advanced under fluoroscopic guidance into the inferior aspect of the right sacroiliac joint. Following negative aspiration, approximately 0.3 cc of Isovue-300 was injected confirming intra-articular placement without vascular uptake. Radiographic data, including multiple fluoroscopic views of the pelvis, reveals a spinal needle in the sacroiliac joint hyper lucent zone. Subsequent view show flow contrast tear superiorly and inferiorly within the joint capsule without vascular intrathecal uptake. At this point a total of 1cc of 0.5% Marcaine was combined with 1cc of 6 mg of betamethasone was injected without incident. The procedure tolerated the procedure well without signs or symptoms of complications prior to transfer to the recovery area continued monitoring without incident. The patient was then transferred to the recovery area with a bur observed for an appropriate time after the injection. The patient reverted a vas score of 7 prior to the procedure and postprocedure vas of 1. Total fluoroscopy time: 22.7 sec Total conscious sedation time: 24 min Postop instructions The patient was provided with a pain like to continue to record the patient's response to the target specific procedure prior to the patient's follow-up visit with the referring physician. Additionally, specific post injection care instructions and a contact number to our office were provided if concerns arise regarding the possible complications associated with procedure are suspected. Duglas Coleman D.O. Complications: none
[2019-08-08 11:36] VITALS: BP 145/63; PULSE 75; RESP 16; O2SAT 98
[2019-08-08 11:43] VITALS: BP 114/76; PULSE 67; RESP 16; O2SAT 99
--- NOTE | 2019-08-08 11:45 | PC.NURSE ---
Post procedure discharge note: Patient arrived at 1137 via wheelchair. Transferred to w/c with minimal assist. VSS. Pain level 3/10 burning sensation. Discharge instructions given and explained with good understanding. 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
[2019-08-08 11:47] VITALS: BP 150/76; PULSE 69; RESP 16; O2SAT 100
== END 2019-08-08 11:57 | disposition home or self-care (01) ==
LOC: RAD 09:15
PROVIDERS: Family Provider Physician Assistant Medical; PCP Physician Assistant Medical; Visit Provider Physical Medicine & Rehabilitation
DX: M53.3 Sacrococcygeal disorders, not elsewhere classified (principal); M47.898 Other spondylosis, sacral and sacrococcygeal region
CPT/HCPCS: 27096; 99152; J0702; J2250; J3010

== ENCOUNTER → 2020-03-02 08:31 | Outpatient (CLI) | payer MEDICARE, OTHER, SELFPAY ==
[2020-03-02 23:36] LABS: COVID19 Sendout Not Detected (Not Detect)
== END ==
PROVIDERS: Family Provider Physician Assistant Medical; PCP Physician Assistant Medical; Visit Provider Physician Assistant
DX: Z01.812 Encounter for preprocedural laboratory examination (principal)
CPT/HCPCS: 87635

== ENCOUNTER 2020-03-05 14:21 | Outpatient (CLI) | payer MEDICARE, OTHER, SELFPAY ==
[2020-03-05] VITALS (9 sets, daily range): BP systolic 142–193; BP diastolic 60–94; PULSE 69–92; RESP 15–17; TEMP 36.3; O2SAT 94–100
--- NOTE | 2020-03-05 14:22 | DI.RAD.S_ITS ---
PROCEDURE: PAIN L/S TRANSFORAMINAL INJECT INDICATIONS: SPONDYLOSIS FINDINGS: Fluoroscopic spot filming was performed to verify placement of spinal needles at the right L4-5 neural foramen level(s), as labeled on the films. Appropriate location(s) of the needle tip(s) was confirmed by injection of iodinated contrast. IMPRESSION: Successful needle tip localization on the right at the L4-L5 neural foramen for transforaminal epidural steroid injection. Dictated by: Marcos Torres M.D. on 03/05/2020 at 16:26 Approved by: Marcos Torres M.D. on 03/05/2020 at 16:26
[2020-03-05] MEDS: MIDAZOLAM 5 MG/5 ML VIAL IV (15:41)
[2020-03-05] MEDS: BUPIVACAINE 0.25% (PF) VIAL 2 ML INJ (15:45)
[2020-03-05] MEDS: BETAMETHASONE 30 MG/5 ML MDV 6 MG INJ (15:45)
[2020-03-05] MEDS: IOPAMIDOL 15 ML VIAL 3 ML INJ (15:45)
[2020-03-05] MEDS: DEXAMETHASONE 10 MG/ML VIAL 20 MG INJ (15:45)
--- NOTE | 2020-03-05 16:10 | P.PCN_ITS ---
Date/Time/Diagnoses Date of procedure: 03/05/20 Time of procedure: 16:10 Pre-procedure diagnosis: 1. FORAMINAL STENOSIS WITH LE SYMPTOMS Post-procedure diagnosis: same Procedure Notes Procedure: 1. FLUOROSCOPICALLY GUIDED CONTRAST CONTROLLED TRANSFORAMINAL EPIDURAL STEROID INJECTION - RIGHT L4/5 TFESI Indications: Kiley is referred by JANINE Sandoval for treatment of Foraminal Stenosis with Right LE Symptoms Physician: Duglas Coleman Complications: none Procedure in detail & Post-procedure care: FINDINGS Foraminal Nerve Root Compression secondary to disc disease and facet hypertrophy DESCRIPTION OF PROCEDURE Following review of allergy and review of potential side effects and complications, including, but not necessarily limited to, infection, allergic reaction, local tissue breakdown, stroke, temporary or permanent nerve injury, paralysis, and possible , the patient indicated that the patient understood and agreed to proceed. An informed consent document was signed by the patient, witnessed by a nurse, and placed in the patient's chart. Additionally, other treatment options including medications, modalities, and physical therapy were reviewed with the patient. After review of previous anaesthesic history and IV conscious sedation the patient was deemed safe to proceed with today?s procedure with IV conscious sedation as ASA class II designation. Safety time-out was performed to confirm patient ID, procedure to be performed and site of procedure. IV sedation was accomplished with a combination of 2mg of Versed was administered by the RN after DO order, titrated to patient comfort during the course of the procedure while the patient remained responsive to all verbal commands In the prone position following sterile prep and drape of the lumbar region, the Right L4/5 posterior neuroforamen was identified fluoroscopically. The skin was anesthetized via a 25-gauge 1.5-inch needle with 1% lidocaine solution. At this point, a 25-gauge 3.5-inch spinal needle was atraumatically introduced and adva nced under fluoroscopic guidance through the posterior right L4/5 neuroforamen to approximately the anterior aspect of the canal. Depth was confirmed on lateral view. Following negative aspiration, injection of approximately 1.5 cc of Isovue 200 under live fluoroscopy in the AP view confirmed excellent flow along the nerve root, into the epidural space without vascular or intrathecal uptake observed Radiological data, including multiple fluoroscopic views of the lumbosacral spine, reveal a spinal needle at the right L4/5 posterior neuroforamen. Subsequent views show flow of contrast material flowing superiorly and inferiorly along the nerve root confirming epidural flow. Subsequently, a test dose of 1.5 cc of 1% lidocaine solution was administered and patient was observed for two minutes for signs or symptoms of complications, including abdominal pain, shortness of breath, bilateral upper or lower extremity weakness, nausea and vomiting, prior to steroid injection. At this po int, a total of 3cc or 20mg of dexamethasone and 6mg of betamethasone was injected without incident. The procedure tolerated the procedure well without signs or symptoms of complications prior to transfer to the recovery area continued monitoring without incident. The patient was then transferred to the recovery area where they were observed for an appropriate time after the injection. The patient reported a VAS score of 7 prior to the procedure and a post- procedure VAS of 0. POST OP INSTRUCTIONS The patient was provided a Pain Log to continue to record their response to the target-specific procedure prior to follow-up visit with their referring physician. Additionally, specific post-injection care instructions and a contact number to our office were provided if concerns arise regarding possible complications associated with the procedure are suspected.
--- NOTE | 2020-03-05 16:14 | PC.NURSE ---
Pt returns to pre proc room via wc, 1PA transfer from wc to chair. monitoring resumed by this rn
--- NOTE | 2020-03-05 16:15 | PC.NURSE ---
Pt tolerated procedure well. Versed given my RN Umair, all other meds administered by Dr. Coleman. VSS upon transfer to MARY Smart in post procedure room.
== END 2020-03-05 16:36 | disposition home or self-care (01) ==
LOC: RAD 14:22
PROVIDERS: Family Provider Physician Assistant Medical; PCP Physician Assistant Medical; Referring Provider Physician Assistant Medical; Visit Provider Physical Medicine & Rehabilitation
DX: M48.061 Spinal stenosis, lumbar region without neurogenic claudication (principal); M51.16 Intervertebral disc disorders with radiculopathy, lumbar region
CPT/HCPCS: 64483; 99152; J0702; J1100; J2250; J3010

== ENCOUNTER → 2020-03-25 12:39 | Outpatient (CLI) | payer MEDICARE, OTHER, SELFPAY ==
--- NOTE | 2020-03-25 12:41 | DI.RAD.S_ITS ---
PROCEDURE: XR SHOULDER LT MIN 2V INDICATIONS: left shoulder impingement TECHNIQUE: 3 views of the shoulder were acquired. COMPARISON: None. FINDINGS: Bones: No fractures or dislocations. No suspicious bony lesions. Visualized ribs appear intact. Mild degenerative change at the acromioclavicular joint appreciated. Soft tissues: No suspicious soft tissue calcifications. No calcific tendinitis demonstrated. IMPRESSION: No fracture or dislocation. Dictated by: Ananth Diaz M.D. on 03/25/2020 at 17:07 Approved by: Ananth Diaz M.D. on 03/25/2020 at 17:08
== END ==
PROVIDERS: Family Provider Physician Assistant Medical; PCP Physician Assistant Medical; Referring Provider Physician Assistant Medical; Visit Provider Physical Medicine & Rehabilitation
DX: M75.42 Impingement syndrome of left shoulder (principal)
CPT/HCPCS: 73030

== ENCOUNTER → 2020-12-08 15:37 | Outpatient (CLI) | payer MEDICARE, OTHER, SELFPAY ==
--- NOTE | 2020-12-08 15:40 | DI.RAD.S_ITS ---
PROCEDURE: XR LUMBAR SPINE MIN 4V INDICATIONS: Lower back pain TECHNIQUE: 4 views of the lumbar spine were acquired, including bilateral oblique views. COMPARISON: None. FINDINGS: Bones: 5 nonrib-bearing vertebrae are present. There is normal bony alignment. No vertebral body compression fractures. No suspicious bony lesions. Lower lumbar facet arthropathy. Multilevel disc height loss, most severe at L4-L5. Soft tissues: Overlying bowel gas pattern is normal. No suspicious soft tissue calcifications. Oblique images: No pars defects. IMPRESSION: Lumbar degenerative disc disease and posterior facet arthropathy. No evidence acute bony abnormality of the lumbar spine. If clinical suspicion and/or symptoms persist, further assessment with repeat plain films, or advanced imaging (e.g., CT, MRI, or bone scan) may be helpful for further assessment. Dictated by: Prosper Lim M.D. on 12/08/2020 at 17:04 Approved by: Prosper Lim M.D. on 12/08/2020 at 17:04
== END ==
PROVIDERS: Family Provider Physician Assistant Medical; PCP Physician Assistant Medical; Referring Provider Physical Medicine & Rehabilitation; Visit Provider Physical Medicine & Rehabilitation
DX: M96.1 Postlaminectomy syndrome, not elsewhere classified (principal); M51.36 Other intervertebral disc degeneration, lumbar region; M47.816 Spondylosis without myelopathy or radiculopathy, lumbar region; M53.3 Sacrococcygeal disorders, not elsewhere classified; M46.96 Unspecified inflammatory spondylopathy, lumbar region; M75.42 Impingement syndrome of left shoulder
CPT/HCPCS: 72110

== ENCOUNTER → 2021-03-29 09:45 | Outpatient (CLI) | payer MEDICARE, OTHER, SELFPAY ==
[2021-03-29 12:43] LABS: COVID19 -Nasal RAPID Negative (Negative)
== END ==
PROVIDERS: Family Provider Physician Assistant Medical; PCP Physician Assistant Medical; Visit Provider Physician Assistant
DX: Z01.812 Encounter for preprocedural laboratory examination (principal); Z20.822 Contact with and (suspected) exposure to COVID-19
CPT/HCPCS: 87635; C9803

== ENCOUNTER 2021-03-30 08:32 | Day surgery (SDC) | payer MEDICARE, OTHER, SELFPAY ==
--- NOTE | 2021-03-30 | PATH_ITS ---
[facility] Accession Number: [id number] . 01 Material submitted: . PART A: colon - RANDOM COLON PART B: rectum - RECTAL POLYPS . 02 Diagnosis: A. Random Colon, Biopsies: Most consistent with lymphocytic colitis. Negative for granulomas, dysplasia, and malignancy. . B. Rectum, Polyps, Biopsies: Hyperplastic polyps. I 04/02/2021 1323 Local . 02 Electronically signed: . Kassi Marrero MD, Pathologist NPI- [id number] . 01 Gross description: . Part A: RANDOM COLON: Received in formalin are 4 fragment(s) of ferrell, soft tissue measuring 0.5 x 0.2 x 0.1 cm to 0.1 x 0.1 x 0.1 cm submitted entirely in 1 cassette(s) Part B: RECTAL POLYPS: Received in formalin are 2 fragment(s) of ferrell, soft tissue measuring 0.3 x 0.2 x 0.1 cm to 0.2 x 0.1 x 0.1 cm submitted entirely in 1 cassette(s) /PETE 03/31/2021 0359 Local . 02 Microscopic: . A. A trichrome stain was performed to evaluate the subepithelial collagen layer in the random colon biopsies. The trichrome stain highlights a predominately unremarkable subepithelial collagen layer with focal minimal thickening. The control stain showed appropriate reactivity. . 02 Pathologist provided ICD-10: R19.7 . 02 CPT . 412112, [id number], [id number] Performed at: 01 [facility] [address], [place], [place] [id number] MD Waldemar Trinidad MD Phone: [phone] Performed at: 02 [facility] [address] [place] [id number] MD Kassi Marrero MD Phone: [phone]
[2021-03-30 09:18] VITALS: BP 170/80; PULSE 92; RESP 16; TEMP 36.8; O2SAT 96; BMI 18.9
[2021-03-30] MEDS: SODIUM CHLORIDE 0.9% 1,000 ML 84 ML IV (09:32)
--- NOTE | 2021-03-30 10:10 | PM.HP.1 ---
History of Present Illness History of Present Illness Date Patient Seen: 03/30/21 Time Patient Seen: 10:11 Chief complaint: DX COLONOSCOPY W/POSS BX Narrative: diarrhhea Patient History Medical History Greater trochanteric bursitis of right hip Impingement syndrome of left shoulder Sacral dysfunction Surgical History History of arthroscopy of right knee History of back surgery Family & Social History Social History: household members spouse Tobacco & Substance use: Smoking Status Never smoker alcohol intake current alcohol intake frequency a few times a week Substance Use Type does not use Meds Home Medications and Allergies Home Medications Medication Instructions Recorded Confirmed Type lisinopril 10 mg tablet 20 mg PO BID #0 04/26/16 03/30/21 History acetaminophen 325 mg capsule 1,000 mg PO Q6H PRN 01/25/18 03/30/21 History (Tylenol) fluticasone propionate 50 1 spray NASAL DAILY 01/25/18 03/30/21 History mcg/actuation nasal spray,suspension ibuprofen 200 mg tablet (Advil) 200 mg PO Q4-6H PRN 12/26/18 03/30/21 History lidocaine 5 % topical patch 2 patch TOPICAL DAILY 12/26/18 03/30/21 History cholecalciferol (vitamin D3) 125 5,000 unit PO DAILY 07/12/19 03/30/21 History mcg (5,000 unit) capsule celecoxib 200 mg capsule (Celebrex) 200 mg PO DAILY #90 cap 12/11/20 03/30/21 Rx gabapentin 300 mg capsule See Rx Instructions .ROUTE 02/24/21 03/30/21 Rx .COMPLEX #90 cap Allergies Allergy/AdvReac Type Severity Reaction Status Date / Time tetanus and diphtheria Allergy Intermediate Rash Verified 12/11/20 10:03 toxoids tetanus toxoid, adsorbed Allergy Intermediate Rash Verified 12/11/20 10:03 Tetanus Vaccines and Toxoid Allergy Intermediate Rash Verified 12/11/20 10:03 tramadol AdvReac Mild nausea, Verified 12/11/20 10:03 vomiting Review of Systems Review of Systems ROS: Yes All systems reviewed with the patient and are negative except as otherwise documented Gastrointestinal Comments: A little bit of abdominal discomfort with the prep. Exam Vital Signs (past 8 hours): - 03/30/21 09:18 Temperature 98.2 F Pulse Rate 92 H Respiratory Rate 16 Blood Pressure 170/80 H Pulse Oximetry 96 Oxygen Delivery Method Room Air Oxygen Flow Rate 0 Const General: cooperative and comfortable Orientation: alert HENMT Head: normocephalic Ears: external ears normal Nose: external nose normal Face and sinus: normal facial exam Mouth: oral mucosae normal Eyes General: appearance normal, both eyes and all related structures Neck Neck: normal visual inspection Chest Chest: normal inspection of the chest Resp Effort & Inspection: normal respiratory effort Auscultation: clear to auscultation bilaterally Cardio Rate: regular rate Rhythm: regular rhythm Heart Sounds: no murmurs GI Inspection: normal to inspection Palpation: soft and No tender Auscultation: normal bowel sounds Skin General: no rashes or lesions noted and No jaundice Neuro General: patient alert and moves all extremities Cognition: normal cognition Speech: speech normal Extrem General: no pedal edema Psych Appearance: grossly normal Assessment & Plan Assessment & Plan narrative: Diarrhea. Abnl imaging. Colonoscopy today with biopsies.
--- NOTE | 2021-03-30 10:13 | PM.PREOP ---
Pre-operative Note COVID-19 COVID-19 status: Negative Result date/Date tested (Pos, Neg/Pending): 03/29/21 Interval Note History & Physical reviewed/Exam performed by Physician: Yes Changes to H&P: No ASA Class (for procedural sedation): II
[2021-03-30] MEDS: MIDAZOLAM 5 MG/5 ML VIAL IV (10:14)
[2021-03-30] MEDS: fentaNYL 250 MCG/5 ML INJ IV (10:15)
--- NOTE | 2021-03-30 11:03 | PM.OP.ENDO ---
Operative Date/Time/Diagnoses Date of procedure: 03/30/21 Time of procedure: 11:03 Pre-op diagnosis: Diarrhea abnormal imaging Post-op diagnosis: same Procedure & Clinicians Study performed: Colonoscopy with biopsies Same procedure as scheduled: Yes Indications: Diarrhea abnormal imaging Surgeon: Jose Colon Procedure Notes SCOAP/Timeout: Done Procedure in detail: After the risks and benefits were explained, written and verbal informed consent was obtained. The patient was brought into the procedure room and placed into the left lateral decubitus position. Conscious sedation medication was applied as per nursing documentation. Digital rectal examination was accomplished. The scope was introduced into the patient and advanced under direct visualization to the cecum as identified by the appendiceal orifice and ileocecal valve. The scope was slowly withdrawn to carefully examine the mucosa for any defects or lesions. Comprehensive imaging was accomplished throughout the rectum including the dentate line. The colon was decompressed, the scope was then removed from the patient who tolerated the procedure well. 3 mg Versed 75 mcg sentinel Bowel prep adequate Scope withdrawal time: 25 minutes Sedation minutes: 47 Complications: none Impression: The patient had a scattered moderate diverticulosis all throughout the sigmoid colon. Patient had a very tortuous sigmoid colon. The procedure was initially attempted with a standard adult colonoscope but we could not navigate through some of these difficult turns. The scope was swapped out for a pediatric colonoscope and with mostly water immersion we were able to successfully navigate through on to cecum. The ileocecal valve appeared normal. It I had very limited reflux into the terminal aspect of TI and the villi appeared uninflamed and normal. I did not fully intubate the TI. The there were some scattered diverticula in the ascending colon. Overall the mucosa throughout appeared to be within normal limits therefore random biopsies were taken for exclusion of microscopic colitis. In the sigmoid colon at around 35 cm from the anal verge it appeared as though a the water jet created a small mucosal laceration. (8 mm) if she there was no ongoing hemorrhage but in order to ensure that the defect remained well approximated we placed to secure clips at this location successfully. Mild internal hemorrhoids were noted on direct views. There were a grouping of fairly classic appearing hyperplastic polyps in the rectum these were sampled with cold forceps to confirm my assumption that these were hyperplastic. Endoscopic diagnosis 1. Diverticulosis 2. Grade 2 internal/external hemorrhoids 3. Hyperplastic appearing rectal polyps 4. Otherwise visually unremarkable colonoscopy to cecum Post-procedure Recommendations: Will call with biopsy results Plan for aftercare: 1. Await histopathology 2. Surveillance colonoscopy is not anticipated Disposition: PACU
[2021-03-30 11:04] VITALS: BP 120/61; BP 125/59; PULSE 61; PULSE 69; RESP 14; RESP 16; TEMP 36.6; O2SAT 100
[2021-03-30 11:09] VITALS: BP 120/61; PULSE 60; RESP 16; O2SAT 97
[2021-03-30 11:14] VITALS: BP 120/54; BP 127/57; PULSE 61; PULSE 65; RESP 15; RESP 16; O2SAT 100; O2SAT 98
[2021-03-30 11:29] VITALS: BP 128/70; PULSE 67; RESP 16; TEMP 36.7; O2SAT 98
[2021-03-30 11:36] VITALS: BP 130/84; PULSE 68; RESP 16; TEMP 36.8; O2SAT 98
== END 2021-03-30 11:55 | disposition home or self-care (01) ==
PROVIDERS: Family Provider Physician Assistant Medical; PCP Physician Assistant Medical; Referring Provider Internal Medicine Gastroenterology; Visit Provider Internal Medicine Gastroenterology
PROC: 0DJD8ZZ Inspection of Lower Intestinal Tract, Via Natural or Artificial Opening Endoscopic (ICD-10-PCS; CPT 45378; principal; 2021-03-30 10:00)
DX: R19.7 Diarrhea, unspecified (principal); K64.1 Second degree hemorrhoids; K64.4 Residual hemorrhoidal skin tags; I10 Essential (primary) hypertension; K57.30 Diverticulosis of large intestine without perforation or abscess without bleeding; K62.1 Rectal polyp
CPT/HCPCS: 45380; J2250; J3010

== ENCOUNTER → 2021-04-27 16:19 | Outpatient (CLI) | payer MEDICARE, OTHER, SELFPAY ==
[2021-04-27 17:06] LABS: COVID19 -Nasal RAPID Negative (Negative)
== END ==
PROVIDERS: Family Provider Physician Assistant Medical; PCP Physician Assistant Medical; Visit Provider Physical Medicine & Rehabilitation
DX: Z20.822 Contact with and (suspected) exposure to COVID-19 (principal)
CPT/HCPCS: 87635; C9803

== ENCOUNTER 2021-04-29 13:46 | Outpatient (CLI) | payer MEDICARE, OTHER, SELFPAY ==
[2021-04-29] VITALS (8 sets, daily range): BP systolic 143–177; BP diastolic 68–81; PULSE 67–79; RESP 15–23; TEMP 36.4–36.5; O2SAT 100
--- NOTE | 2021-04-29 13:47 | DI.RAD.S_ITS ---
PROCEDURE: PAIN L/SI FACET INJ/BLK 1STL INDICATIONS: SPONDYLOSIS COMPARISON: [facility], , PAIN L/SI FACET INJ/BLK 1STL, 03/19/2019, 14:05. FINDINGS: Fluoroscopic spot filming was performed to verify placement of spinal needles at the right L4, L5 and S1 medial branch block level(s), as labeled on the films. Appropriate location(s) of the needle tip(s) was confirmed by injection of iodinated contrast. IMPRESSION: Successful needle tip localization for medial branch block procedures on the right at L4, L5, and S1. Dictated by: Marcos Torres M.D. on 04/29/2021 at 15:17 Approved by: Marcos Torres M.D. on 04/29/2021 at 15:18
[2021-04-29] MEDS: MIDAZOLAM 5 MG/5 ML VIAL IV (14:50)
[2021-04-29] MEDS: IOPAMIDOL 15 ML VIAL 3 ML INJ (14:53)
[2021-04-29] MEDS: BUPIVACAINE 0.5% (PF) VIAL 2 ML INJ (14:53)
[2021-04-29] MEDS: LIDOCAINE 1% 20 ML 10 ML INJ (14:53)
--- NOTE | 2021-04-29 15:03 | P.PCN_ITS ---
Date/Time/Diagnoses Date of procedure: 04/29/21 Time of procedure: 15:03 Pre-procedure diagnosis: 1. FACET ARTHROPATHY Post-procedure diagnosis: same Procedure Notes Procedure: 1. Right L4, L5 and S1 MB BLOCKS Indications: Kiley is referred by JANINE Sandoval for treatment of Right Axial LBP. Physician: Duglas Coleman Total Fluoroscopy time (seconds): 4 Total sedation minutes: 9 Complications: none Procedure in detail & Post-procedure care: DESCRIPTION OF PROCEDURE Fluoroscopically guided, contrast-controlled right L4, L5 and S1 medial branch blocks with 0.5cc of 0.5% Marcaine. Following review of allergy and review of potential side effects and complications, including, but not necessarily limited to, infection, allergic reaction, local tissue breakdown, nerve injury, paralysis, stroke and possible , the patient indicated that the patient understood and agreed to proceed. An informed consent document was signed by the patient, witnessed by a nurse, and placed in the patient's chart. After review of previous anaesthesic history and IV conscious sedation the patient was deemed safe to proceed with today?s procedure with IV conscious sedation as ASA class II designation. Safety time-out was performed to confirm patient ID, procedure to be performed and site of procedure. IV sedation was accomplished with a combination of 2mg of Versed was administered by the RN after DO order, titrated to patient comfort during the course of the procedure while the patient remained responsive to all verbal commands In the prone position, following sterile prep and drape of the lumbar region, the right L4, L5 and S1 anatomical location of the medial branch of the dorsal ramus was identified fluoroscopically. Subsequently an anesthetic skin wheal using 1% lidocaine solution was initiated at each of the anatomical spots. Subsequently then a 22-gauge 3.5-inch spinal needle was atraumatically introduced and advanced under fluoroscopic guidance at each of the corresponding sites at the right L4, L5 and S1 MB. After negative aspiration, 0.2 cc of Isovue 200 was injected, confirming placement without vascular or intrathecal uptake. Subsequently then 0.5 cc of 0.5% Marcaine solution was injected at each of the corresponding sites at the right L4, L5 and S1 medial branch locations. The patient tolerated the procedure well without signs or symptoms of complications. The procedure tolerated the procedure well without signs or symptoms of complications prior to transfer to the recovery area continued monitoring without incident. Post-procedure, the patient was monitored initiating provocative activities to measure the amount of relief from block of the facetogenic pain. The patient reported a VAS of 7 prior to the procedure and a post-procedure VAS of 1. It has been a pleasure to assist in the diagnostic and therapeutic care of your patient. POST OP INSTRUCTIONS The patient was provided with a Pain Log to complete over the next several hours and subsequent days prior to the patient's follow up with the ordering physician. 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 The patient is aware, was provided, once again, with a Pain Log and will follow up with the referring physician for review and clinical correlation.
== END 2021-04-29 15:20 | disposition home or self-care (01) ==
LOC: RAD 13:46
PROVIDERS: Family Provider Physician Assistant Medical; PCP Physician Assistant Medical; Referring Provider Physical Medicine & Rehabilitation; Visit Provider Physical Medicine & Rehabilitation
DX: M47.816 Spondylosis without myelopathy or radiculopathy, lumbar region (principal); M47.817 Spondylosis without myelopathy or radiculopathy, lumbosacral region; M54.5 Low back pain
CPT/HCPCS: 64493; 64494; J2250; J3010

== ENCOUNTER → 2021-06-21 08:34 | Outpatient (CLI) | payer MEDICARE, OTHER, SELFPAY ==
[2021-06-21 16:55] LABS: COVID19 -Nasal RAPID Negative (Negative)
== END ==
PROVIDERS: Family Provider Physician Assistant Medical; PCP Physician Assistant Medical; Referring Provider Physical Medicine & Rehabilitation; Visit Provider Physical Medicine & Rehabilitation
DX: Z20.822 Contact with and (suspected) exposure to COVID-19 (principal)
CPT/HCPCS: 87635; C9803

== ENCOUNTER 2021-06-22 10:32 | Outpatient (CLI) | payer MEDICARE, OTHER, SELFPAY ==
[2021-06-22] VITALS (8 sets, daily range): BP systolic 127–178; BP diastolic 58–80; PULSE 66–78; RESP 11–25; TEMP 36.8; O2SAT 99–100
--- NOTE | 2021-06-22 10:33 | DI.RAD.S_ITS ---
PROCEDURE: PAIN L/S MED/LAT N RFA INDICATIONS: SPONDYLOSIS COMPARISON: [facility], XA, PAIN L/SI FACET INJ/BLK 1STL, 04/29/2021, 14:55. FINDINGS: Fluoroscopic spot filming was performed to verify placement of spinal needles at the right L4, L5, and S1 level(s), as labeled on the films. IMPRESSION: Intraprocedural examination within normal limits. Dictated by: Luiz Baron M.D. on 06/22/2021 at 11:45 Approved by: Luiz Baron M.D. on 06/22/2021 at 11:45
[2021-06-22] MEDS: fentaNYL 100 MCG/2 ML INJ 50 MCG IV (11:49)
[2021-06-22] MEDS: MIDAZOLAM 5 MG/5 ML VIAL IV (11:49)
[2021-06-22] MEDS: LIDOCAINE 1% 20 ML 10 ML INJ (12:02)
[2021-06-22] MEDS: BUPIVACAINE 0.5% (PF) VIAL 5 ML INJ (12:02)
--- NOTE | 2021-06-22 12:15 | P.PCN_ITS ---
Date/Time/Diagnoses Date of procedure: 06/22/21 Time of procedure: 12:15 Pre-procedure diagnosis: 1. RECALCITRANT FACET ARTHROPATHY Post-procedure diagnosis: same Procedure Notes Procedure: 1. RIGHT L4 AND L5 MEDIAL BRANCH RADIOFREQUENCY NEUROTOMY AND RIGHT S1 DORSAL RAMUS BRANCH RADIOFREQUENCY NEUROTOMY Indications: Kiley is referred by JANINE Sandoval for treatment of facet arthropathy. Physician: Duglas Coleman Total Fluoroscopy time (seconds): 11 Total sedation minutes: 17 Complications: none Procedure in detail & Post-procedure care: DESCRIPTION OF PROCEDURE Right L4 and L5 medial branch radiofrequency neurotomy and right S1 dorsal ramus branch radiofrequency neurotomy under fluoroscopy with conscious sedation. The patient is well known to this clinic having undergone previous facet injections with good but temporary relief. The patient has experienced appropriate, concordant relief with previous facet and median branch blocks but the patient's pain has been recalcitrant to further conservative measures. Therefore, based upon the patient's relief and persistent symptoms, the patient is considered an appropriate candidate for facet rhizotomy. All of the patient's questions regarding the risks versus benefits of the procedure, including, but not limited to, bleeding, infection, temporary as well as lasting nerve injury, paralysis, stroke, and , as well treatment alternatives were answered to satisfaction. After review of previous anaesthesic history and IV conscious sedation the patient was deemed safe to proceed with today?s procedure with IV conscious sedation as ASA class II designation. Safety time-out was performed to confirm patient ID, procedure to be performed and site of procedure. IV sedation was accomplished with a combination of 2mg of Versed and 50mcg of Fentanyl was administered by the RN after DO order, titrated to patient comfort during the course of the procedure while the patient remained responsive to all verbal commands. After obtaining informed consent, denial of pertinent drug allergies, as well as being made aware of the potential risks of bleeding, infection, spinal cord trauma, paralysis, temporary and permanent nerve damage, seizure, stroke, and possible , the patient was brought to the fluoroscopy suite and positioned prone on the fluoroscopy table. The lumbar region was prepped with Betadine and covered with a fenestrated drape in the usual sterile fashion. Appropriate monitors applied including pulse oximeter, pulse, and blood pressure for regular monitoring throughout the procedure. After local infiltration using 1% lidocaine, under fluoroscopic guidance, a 10- cm RF insulated needle with a 10-mm active tip was positioned parallel to the junction of the right sacral ala and the superior articulating process where the S1 dorsal ramus resides. Needle placement was confirmed with sensory stimulation at 50 Hz, with motor stimulation of .5v on the right which produced local stimulation without radicular component. The stimulation was then increased to 2v with, once again, only local multifidus stimulation without radicular component. This was then followed by two discreet lesions performed at 80 degrees Celsius for 90 seconds each. The needle was then removed and the identical procedure was performed along the length of the right L5 medial branch with motor stimulation at .7v on the right. The identical procedure was once again performed along the length of the right L4 medial branch with motor stimulation of .5v on the right. The patient tolerated the procedure well without signs or symptoms of complications prior to transfer to the recovery area continued monitoring without incident. The patient was then transferred to the recovery area where they were observed for an appropriate period of time after the injection. The patient was then transferred to the recovery area where they were observed for an appropriate period of time after the injection. The patient reported a VAS score of 8 prior to the procedure and a post- procedure VAS of 0. POST OP INSTRUCTIONS The patient was provided a Pain Log to continue to record the patient's response to the target-specific procedure prior to the patient's follow-up visit with the referring physician. Additionally, specific post-injection care instructions and a contact number to our office were provided if concerns arise regarding possible complications associated with the procedure are suspected.
== END 2021-06-22 12:38 | disposition home or self-care (01) ==
LOC: RAD 10:33
PROVIDERS: Family Provider Physician Assistant Medical; PCP Physician Assistant Medical; Referring Provider Physical Medicine & Rehabilitation; Visit Provider Physical Medicine & Rehabilitation
DX: M47.816 Spondylosis without myelopathy or radiculopathy, lumbar region (principal); M47.817 Spondylosis without myelopathy or radiculopathy, lumbosacral region
CPT/HCPCS: 64635; 64636; 99152; J2250; J3010

== ENCOUNTER → 2021-10-12 12:27 | Outpatient (CLI) | payer MEDICARE, OTHER, SELFPAY ==
--- NOTE | 2021-10-12 12:29 | DI.MRI.S_ITS ---
PROCEDURE: MR LUMBAR SPINE WO CON INDICATIONS: Pain TECHNIQUE: Multiplanar multisequential MRI images of the lumbar spine were obtained without intravenous contrast COMPARISON: [facility], MR, MR LUMBAR SPINE WO CON, 11/07/2018, 12:38. FINDINGS: Image quality: Excellent Alignment and Curvature: There is normal bony alignment. Bone Marrow: Marrow is of normal overall signal. No acute vertebral body compression fractures. No sacral fractures. Spinal Cord: Conus medullaris terminates at the L1 level. Visualized cord demonstrates normal signal and size. Paraspinous Soft Tissues: No paravertebral masses. T12-L1: Disc space narrowing with circumferential disc bulge present with mild central stenosis. No foraminal stenosis. L1-L2: Disc space narrowing with circumferential disc bulge and hypertrophic facet joints present. Mild central stenosis. Moderate bilateral foraminal stenosis present. L2-L3: Mild disc space narrowing present. There is a circumferential disc bulge, hypertrophic facet joints and ligamentum flavum laxity resulting in moderate central stenosis. Moderate bilateral foraminal stenosis present. L3-L4: Disc height is preserved. Circumferential disc bulge with ligamentum flavum laxity and hypertrophic facet joints results in moderate central and bilateral foraminal stenosis. L4-L5: Disc space narrowing with circumferential disc bulge and hypertrophic facet joints present. There has been a right hemilaminectomy. No central stenosis. Severe bilateral foraminal stenosis is greater on the right. L5-S1: Disc height is preserved. Circumferential disc bulge with hypertrophic facet joints present. Moderate left and no right foraminal stenosis. IMPRESSION: Multilevel degenerative disc disease and arthropathy results in varying degrees of central and foraminal stenosis, similar to the prior exam. Approved by: Luis Manuel Bah M.D. on 10/12/2021 at 14:24
== END ==
PROVIDERS: Family Provider Physician Assistant Medical; PCP Physician Assistant Medical; Referring Provider Physical Medicine & Rehabilitation; Visit Provider Physical Medicine & Rehabilitation
DX: M47.816 Spondylosis without myelopathy or radiculopathy, lumbar region (principal); M47.817 Spondylosis without myelopathy or radiculopathy, lumbosacral region; M51.36 Other intervertebral disc degeneration, lumbar region; M51.37 Other intervertebral disc degeneration, lumbosacral region; M46.86 Other specified inflammatory spondylopathies, lumbar region; M53.3 Sacrococcygeal disorders, not elsewhere classified
CPT/HCPCS: 72148

== ENCOUNTER → 2021-12-20 11:30 | Outpatient (CLI) | payer MEDICARE, OTHER, SELFPAY ==
[2021-12-20 13:45] LABS: COVID19 -Nasal RAPID Negative (Negative)
== END ==
PROVIDERS: Family Provider Physician Assistant Medical; PCP Physician Assistant Medical; Visit Provider Physical Medicine & Rehabilitation
DX: Z20.822 Contact with and (suspected) exposure to COVID-19 (principal)
CPT/HCPCS: 87635; C9803

== ENCOUNTER 2021-12-21 14:05 | Outpatient (CLI) | payer MEDICARE, OTHER, SELFPAY ==
[2021-12-21] VITALS (8 sets, daily range): BP systolic 123–185; BP diastolic 59–79; PULSE 74–81; RESP 12–21; TEMP 36.7; O2SAT 94–100
--- NOTE | 2021-12-21 14:45 | DI.RAD.S_ITS ---
PROCEDURE: PAIN L INTERLAMINAR/CAUDAL INJ INDICATIONS: SPONDYLOSIS COMPARISON: [facility], MR, MR LUMBAR SPINE WO CON, 10/12/2021, 13:04. FINDINGS: Fluoroscopic spot filming was performed to verify placement of spinal needles at the L5-S1 level(s), as labeled on the films. Appropriate location(s) of the needle tip(s) was confirmed by injection of iodinated contrast. IMPRESSION: Fluoroscopy for pain management. Dictated by: Phylicia Shen M.D. on 12/21/2021 at 15:30 Approved by: Phylicia Shen M.D. on 12/21/2021 at 15:30
[2021-12-21] MEDS: MIDAZOLAM 2 MG/2 ML VIAL IV (14:58)
[2021-12-21] MEDS: BUPIVACAINE 0.25% (PF) VIAL 2 ML INJ (15:04)
[2021-12-21] MEDS: BETAMETHASONE 30 MG/5 ML MDV 6 MG INJ (15:04)
[2021-12-21] MEDS: IOPAMIDOL 15 ML VIAL 3 ML INJ (15:04)
[2021-12-21] MEDS: DEXAMETHASONE 10 MG/ML VIAL 20 MG INJ (15:05)
--- NOTE | 2021-12-21 15:13 | P.PCN_ITS ---
Date/Time/Diagnoses Date of procedure: 12/21/21 Time of procedure: 15:14 Pre-procedure diagnosis: 1. HNP WITH RADICULAR FEATURES, 2. MULTILEVEL CENTRAL STENOSIS, Post-procedure diagnosis: same Procedure Notes Procedure: 1. FLUOROSCOPICALLY GUIDED CONTRAST CONTROLLED INTERLAMINAR EPIDURAL STEROID INJECTION - L5/S1 Indications: Kiley is referred by JANINE Sandoval for treatment of Bilateral Foraminal Stenosis L>R LE symptoms. Physician: Duglas Coleman Total Fluoroscopy time (seconds): 5 Total sedation minutes: 10 Complications: none Procedure in detail & Post-procedure care: FINDINGS Multilevel Central Spinal Stenosis with Nerve Root Compression DESCRIPTION OF PROCEDURE Fluoroscopically guided, contrast-controlled L5/S1 translaminar epidural steroid injection. Following review of allergy and review of potential side effects and complications, including, but not necessarily limited to, infection, allergic reaction, local tissue breakdown, temporary as well as permanent nerve injury, paralysis, stroke and possible , the patient indicated that the patient understood and agreed to proceed. An informed consent document was signed by the patient, witnessed by a nurse, and placed in the patient's chart. Additionally, other treatment options including modalities, medications, and physical therapy were reviewed with the patient. After review of previous anaesthesic history and IV conscious sedation the patient was deemed safe to proceed with today?s procedure with IV conscious sedation as ASA class II designation. Safety time-out was performed to confirm patient ID, procedure to be performed and site of procedure. IV sedation was accomplished with a combination of 2mg of Versed administered by the RN after DO order, titrated to patient comfort during the course of the procedure while the patient remained responsive to all verbal commands. In the prone position, following sterile prep and drape of the lumbar region, the L5/S1 translaminar space was identified fluoroscopically. The skin was anesthetized via a 25-gauge, 1.5-inch needle with 1% lidocaine solution. At this point, a 22-gauge short bevel spinal needle was atraumatically introduced a nd advanced under fluoroscopic guidance into the region of the L5/S1 translaminar space. Depth was confirmed on lateral view. Radiological data, including multiple fluoroscopic views of the lumbar spine, reveal a spinal needle at the L5/S1 translaminar space. Lateral views then show placement of the needle in the epidural space. Subsequent views show contrast material flowing superiorly and inferiorly in the epidural space. No vascular or intrathecal uptake is observed. At this point, using loss of resistance technique with saline and air, the epidural space was entered. This was confirmed following negative aspiration with injection of approximately 1.5cc of Isovue 200, showing excellent epidural flow without vascular or intrathecal uptake. At this point, 1 cc of 1% lidocaine solution combined with 3cc or 20mg of dexamethasone and 6mg of betamethasone was injected without incident. The patent tolerated the procedure without signs of symptoms of complications prior to transfer to the recovery area for further monitoring. The patient was then transferred to the recovery area where they were observed for an appropriate period of time after the injection. The patient reported a VAS score of 6 prior to the procedure and a post-procedure VAS of 0. POST OP INSTRUCTIONS The patient was provided a Pain Log to continue to record their response to the target-specific procedure prior to follow-up visit with their referring physician. Additionally, specific post-injection care instructions and a contact number to our office were provided if concerns arise regarding possible complications associated with the procedure are suspected.
== END 2021-12-21 15:34 | disposition home or self-care (01) ==
PROVIDERS: Family Provider Physician Assistant Medical; PCP Physician Assistant Medical; Referring Provider Physical Medicine & Rehabilitation; Visit Provider Physical Medicine & Rehabilitation
DX: M51.17 Intervertebral disc disorders with radiculopathy, lumbosacral region (principal); M48.07 Spinal stenosis, lumbosacral region
CPT/HCPCS: 62323; 99152; J0702; J1100; J2250

== ENCOUNTER → 2022-03-14 16:31 | Outpatient (CLI) | payer MEDICARE, OTHER, SELFPAY ==
--- NOTE | 2022-03-14 16:35 | DI.RAD.S_ITS ---
PROCEDURE: XR ACUTE ABDOMEN SERIES INDICATIONS: ABD PAIN TECHNIQUE: One view chest and two views of the abdomen were acquired. COMPARISON: None. FINDINGS: Surgical changes and devices: None. Chest: Lungs are clear. Heart size is normal. No pleural effusions. No pneumoperitoneum. Hyperinflation and chronic interstitial changes Abdomen: Bowel gas pattern is normal. No suspicious calcifications. Visualized solid organ contours appear normal. Moderate fecal debris in the right colon Bones: No suspicious bony lesions. IMPRESSION: Moderate fecal debris without bowel obstruction No acute cardiopulmonary findings Approved by: Luis Manuel Bah M.D. on 03/14/2022 at 18:24
== END ==
PROVIDERS: Family Provider Physician Assistant Medical; PCP Physician Assistant Medical; Referring Provider Internal Medicine Gastroenterology; Visit Provider Internal Medicine Gastroenterology
DX: K52.839 Microscopic colitis, unspecified (principal); R10.9 Unspecified abdominal pain; M96.1 Postlaminectomy syndrome, not elsewhere classified; M46.86 Other specified inflammatory spondylopathies, lumbar region; M47.816 Spondylosis without myelopathy or radiculopathy, lumbar region; M51.26 Other intervertebral disc displacement, lumbar region; M75.42 Impingement syndrome of left shoulder
CPT/HCPCS: 74022; 99214

== ENCOUNTER → 2022-04-18 13:26 | Outpatient (CLI) | payer MEDICARE, OTHER, SELFPAY ==
[2022-04-18 14:21] LABS: COVID19 -Nasal RAPID Negative (Negative)
== END ==
PROVIDERS: Family Provider Physician Assistant Medical; PCP Physician Assistant Medical; Referring Provider Physical Medicine & Rehabilitation; Visit Provider Physical Medicine & Rehabilitation
DX: Z20.822 Contact with and (suspected) exposure to COVID-19 (principal)
CPT/HCPCS: 87635; C9803

== ENCOUNTER 2022-04-19 13:24 | Outpatient (CLI) | payer MEDICARE, OTHER, SELFPAY ==
[2022-04-19] VITALS (8 sets, daily range): BP systolic 136–181; BP diastolic 65–85; PULSE 74–87; RESP 12–20; TEMP 36.8; O2SAT 98–100
--- NOTE | 2022-04-19 13:25 | DI.RAD.S_ITS ---
PROCEDURE: PAIN SI JOINT INJECTION INDICATIONS: SACROILIAC DISORDER COMPARISON: [facility], , PAIN SI JOINT INJECTION, 08/08/2019, 11:22. FINDINGS: On these intraprocedural images, there is a spinal needle seen overlying the inferior aspect of the right sacroiliac joint. Appropriate position of the tip of the needle was confirmed by injection of a small amount of iodinated contrast. IMPRESSION: Successful sacroiliac joint injection. Dictated by: Luiz Baron M.D. on 04/19/2022 at 13:53 Approved by: Luiz Baron M.D. on 04/19/2022 at 13:54
[2022-04-19] MEDS: MIDAZOLAM 2 MG/2 ML VIAL IV (14:11)
[2022-04-19] MEDS: IOPAMIDOL 15 ML VIAL 3 ML INJ (14:16)
[2022-04-19] MEDS: BETAMETHASONE 30 MG/5 ML MDV 12 MG INJ (14:16)
[2022-04-19] MEDS: BUPIVACAINE 0.5% (PF) VIAL 2 ML INJ (14:16)
--- NOTE | 2022-04-19 14:31 | PM.PROC.IR.1 ---
Date/Time/Diagnoses Date of procedure: 04/19/22 Time of procedure: 14:31 Pre-procedure diagnosis: Sacroiliac joint pain/DJD Post-procedure diagnosis: same Procedure Notes Procedure: Fluoroscopically guided contrast controlled right sacroiliac joint injection Indications: Kiley is referred by JANINE Sandoval for treatment of right sacroiliac joint DJD Physician: Duglas Coleman Total Fluoroscopy time (seconds): 5 Total sedation minutes: 10 Complications: none Procedure in detail & Post-procedure care: DESCRIPTION OF PROCEDURE Fluoroscopically guided, contrast controlled right sacroiliac joint injection Following review of allergies and review of potential side effects and complications, including, but not necessarily limited to, infection, allergic reaction, local tissue breakdown, temporary as well as permanent nerve injury, paralysis, stroke and possible , the patient indicated that they understood and agreed to proceed. An informed consent was signed by the patient, witnessed by a nurse, and placed in the patient's chart. Additionally, other treatment options including modalities, medications, and physical therapy were reviewed with the patient. After review of previous anaesthesic history and IV conscious sedation the patient was deemed safe to proceed with today?s procedure with IV conscious sedation as ASA class II designation. Safety time-out was performed to confirm patient ID, procedure to be performed and site of procedure. IV sedation was accomplished with a combination of 2mg of Versed was administered by the RN after DO order, titrated to patient comfort during the course of the procedure while the patient remained responsive to all verbal commands In the prone position following sterile prep and drape of the pelvic region, the hyper lucency on in the inferior aspect of the sacroiliac joint was identified fluoroscopically the skin was anesthetized be a 25 gauge 1 eventual with approximately 2 cc of 1% lidocaine solution. At this point, a 22 gauge 3 in spinal needle was atraumatically introduced and advanced under fluoroscopic guidance into the inferior aspect of the right sacroiliac joint. Following negative aspiration, approximately 0.3cc of Isovue-300 was injected confirming intra-articular placement without vascular uptake. Radiographic data, including multiple fluoroscopic views of the pelvis, reveals a spinal needle in the sacroiliac joint hyper lucent zone. Subsequent view show flow contrast tear superiorly and inferiorly within the joint capsule without vascular intrathecal uptake. At this point a total of 1cc of 0.5% Marcaine was combined with 1cc of 6 mg of betamethasone was injected without incident. The procedure tolerated the procedure well without signs or symptoms of complications prior to transfer to the recovery area continued monitoring without incident. The patient was then transferred to the recovery area with a bur observed for an appropriate time after the injection. The patient reverted a vas score of 7 prior to the procedure and post-procedure vas of 1. POSTOP INSTRUCTIONS The patient was provided with a pain like to continue to record the patient's response to the target specific procedure prior to the patient's follow-up visit with the referring physician. Additionally, specific post injection care instructions and a contact number to our office were provided if concerns arise regarding the possible complications associated with procedure are suspected.
== END 2022-04-19 14:46 | disposition home or self-care (01) ==
LOC: RAD 13:25
PROVIDERS: Family Provider Physician Assistant Medical; PCP Physician Assistant Medical; Referring Provider Physical Medicine & Rehabilitation; Visit Provider Physical Medicine & Rehabilitation
DX: M53.3 Sacrococcygeal disorders, not elsewhere classified (principal); M46.1 Sacroiliitis, not elsewhere classified
CPT/HCPCS: 27096; 99152; J0702; J2250

== ENCOUNTER 2022-07-19 09:27 | Outpatient (CLI) | payer MEDICARE, OTHER, SELFPAY ==
[2022-07-19] VITALS (9 sets, daily range): BP systolic 121–186; BP diastolic 57–77; PULSE 76–84; RESP 17–20; TEMP 37.1; O2SAT 98–100
--- NOTE | 2022-07-19 09:28 | DI.RAD.S_ITS ---
PROCEDURE: PAIN L INTERLAMINAR/CAUDAL INJ INDICATIONS: SPONDYLOSIS COMPARISON: [facility], XA, PAIN L INTERLAMINAR/CAUDAL INJ, 12/21/2021, 15:03. FINDINGS: Fluoroscopic spot filming was performed to verify placement of a spinal needle at the L4-L5 level, as labeled on the films. Appropriate location of the needle tip was confirmed by injection of iodinated contrast. IMPRESSION: Intraprocedural examination within normal limits. Dictated by: Luiz Baron M.D. on 07/19/2022 at 11:39 Approved by: Luiz Baron M.D. on 07/19/2022 at 11:39
[2022-07-19] MEDS: MIDAZOLAM 2 MG/2 ML VIAL IV (10:56)
[2022-07-19] MEDS: IOPAMIDOL 15 ML VIAL 3 ML INJ (11:01)
[2022-07-19] MEDS: DEXAMETHASONE 10 MG/ML VIAL 20 MG INJ (11:02)
[2022-07-19] MEDS: BUPIVACAINE 0.25% (PF) VIAL 5 ML SUBCUT (11:03)
--- NOTE | 2022-07-19 11:13 | P.PCN_ITS ---
Date/Time/Diagnoses Date of procedure: 07/19/22 Time of procedure: 11:13 Pre-procedure diagnosis: 1. HNP WITH RADICULAR FEATURES, 2. MULTILEVEL CENTRAL STENOSIS, Post-procedure diagnosis: same Procedure Notes Procedure: 1. FLUOROSCOPICALLY GUIDED CONTRAST CONTROLLED INTERLAMINAR EPIDURAL STEROID INJECTION -L4/5 Indications: Kiley is referred by JANINE Sandoval for treatment of Bilateral Foraminal Stenosis R>L LE symptoms. Physician: Duglas Coleman Total Fluoroscopy time (seconds): 3 Total sedation minutes: 10 Complications: none Procedure in detail & Post-procedure care: FINDINGS Multilevel Central Spinal Stenosis with Nerve Root Compression DESCRIPTION OF PROCEDURE Fluoroscopically guided, contrast-controlled L4/5 translaminar epidural steroid injection. Following review of allergy and review of potential side effects and complications, including, but not necessarily limited to, infection, allergic reaction, local tissue breakdown, temporary as well as permanent nerve injury, paralysis, stroke and possible , the patient indicated that the patient understood and agreed to proceed. An informed consent document was signed by the patient, witnessed by a nurse, and placed in the patient's chart. Additionally, other treatment options including modalities, medications, and physical therapy were reviewed with the patient. After review of previous anaesthesic history and IV conscious sedation the patient was deemed safe to proceed with today?s procedure with IV conscious sedation as ASA class II designation. Safety time-out was performed to confirm patient ID, procedure to be performed and site of procedure. IV sedation was accomplished with a combination of 2mg of Versed was administered by the RN after DO order, titrated to patient comfort during the course of the procedure while the patient remained responsive to all verbal commands In the prone position, following sterile prep and drape of the lumbar region, the L4/5 translaminar space was identified fluoroscopically. The skin was anesthetized via a 25-gauge, 1.5inch needle with 1% lidocaine solution. At this point, a 22-gauge short bevel spinal needle was atraumatically introduced and ad vanced under fluoroscopic guidance into the region of the L4/5 translaminar space. Depth was confirmed on lateral view. Radiological data, including multiple fluoroscopic views of the lumbar spine, reveal a spinal needle at the L4/5 translaminar space. Lateral views then show placement of the needle in the epidural space. Subsequent views show contrast material flowing superiorly and inferiorly in the epidural space. No vascular or intrathecal uptake is observed. At this point, using loss of resistance technique with saline and air, the epidural space was entered. This was confirmed following negative aspiration with injection of approximately 1.5cc of Isovue 200, showing excellent epidural flow without vascular or intrathecal uptake. At this point, 1cc of 1% lidocaine solution combined with 3cc or 20mg of dexamethasone and 12mg betamethasone was injected without incident. The patient tolerated the procedure well without signs or symptoms of complications prior to transfer to the recovery area continued monitoring without incident. The patient was then transferred to the recovery area where they were observed for an appropriate period of time after the injection. The patient reported a VAS score of 6 prior to the procedure and a post- procedure VAS of 0. POST OP INSTRUCTIONS The patient was provided a Pain Log to continue to record their response to the target-specific procedure prior to follow-up visit with their referring physician. Additionally, specific post-injection care instructions and a contact number to our office were provided if concerns arise regarding possible complications associated with the procedure are suspected.
--- NOTE | 2022-07-19 13:09 | PC.NURSE ---
1110- patient steady on transfer into chair post procedure. 1125- patient stood at chair had bilateral leg weakness, Reports not that I am standing both my legs feel numb. Denies any dizziness or lightheaded. Dr Coleman aware. 1200- Bilateral LE continue to have weakness has difficulty lifting both legs. 1230- Stood at bedside reports better but still very weak, reports not that she has a pin needle feeling to both legs. Denies any pain 1300- Patient able to march in place, take steps, steady on feet able to ambulate into bathroom across the [place] with stand by assistance. Feels steady on feet and feels safe to D/C home.
== END 2022-07-19 13:09 | disposition home or self-care (01) ==
PROVIDERS: Family Provider Physician Assistant Medical; PCP Physician Assistant Medical; Referring Provider Physical Medicine & Rehabilitation; Visit Provider Physical Medicine & Rehabilitation
DX: M51.16 Intervertebral disc disorders with radiculopathy, lumbar region (principal); M48.061 Spinal stenosis, lumbar region without neurogenic claudication
CPT/HCPCS: 62323; 99152; J0702; J1100; J2250; J3490

== ENCOUNTER 2023-03-21 14:40 | Outpatient (CLI) | payer MEDICARE, OTHER, SELFPAY ==
[2023-03-21] VITALS (9 sets, daily range): BP systolic 140–186; BP diastolic 64–83; PULSE 69–84; RESP 15–22; TEMP 36.4; O2SAT 98–100
--- NOTE | 2023-03-21 14:42 | DI.RAD.S_ITS ---
PROCEDURE: PAIN L INTERLAMINAR/CAUDAL INJ INDICATIONS: SPONDYLOSIS COMPARISON: [facility], XA, PAIN L INTERLAMINAR/CAUDAL INJ, 07/19/2022, 12:02. FINDINGS: Fluoroscopic spot filming was performed to verify placement of spinal needles at the L4-L5 interlaminar space level(s), as labeled on the films. Appropriate location(s) of the needle tip(s) was confirmed by injection of iodinated contrast. IMPRESSION: Access needle tip in the L4-L5 interlaminar space for translaminar epidural steroid injection. Dictated by: Lorraine Westbrook MD, PhD on 03/21/2023 at 16:37 Approved by: Lorraine Westbrook MD, PhD on 03/21/2023 at 16:37
[2023-03-21] MEDS: MIDAZOLAM 2 MG/2 ML VIAL IV (16:03)
[2023-03-21] MEDS: BUPIVACAINE 0.25% (PF) VIAL 2 ML INJ (16:10)
[2023-03-21] MEDS: DEXAMETHASONE 10 MG/ML VIAL 20 MG INJ (16:10)
[2023-03-21] MEDS: IOPAMIDOL 15 ML VIAL 3 ML INJ (16:10)
[2023-03-21] MEDS: BETAMETHASONE 30 MG/5 ML MDV 6 MG INJ (16:11)
--- NOTE | 2023-03-21 16:20 | P.PCN_ITS ---
Date/Time/Diagnoses Date of procedure: 03/21/23 Time of procedure: 16:20 Pre-procedure diagnosis: 1. HNP WITH RADICULAR FEATURES, 2. MULTILEVEL CENTRAL STENOSIS, Post-procedure diagnosis: same Procedure Notes Procedure: 1. FLUOROSCOPICALLY GUIDED CONTRAST CONTROLLED INTERLAMINAR EPIDURAL STEROID INJECTION -L4/5 Indications: Kiley is referred by JANINE Sandoval for treatment of Bilateral Foraminal Stenosis R>L LE symptoms. Physician: Duglas Coleman Total Fluoroscopy time (seconds): 9 Total sedation minutes: 13 Complications: none Procedure in detail & Post-procedure care: FINDINGS Multilevel Central Spinal Stenosis with Nerve Root Compression DESCRIPTION OF PROCEDURE Fluoroscopically guided, contrast-controlled L4/5 translaminar epidural steroid injection. Following review of allergy and review of potential side effects and complications, including, but not necessarily limited to, infection, allergic reaction, local tissue breakdown, temporary as well as permanent nerve injury, paralysis, stroke and possible , the patient indicated that the patient understood and agreed to proceed. An informed consent document was signed by the patient, witnessed by a nurse, and placed in the patient's chart. Additionally, other treatment options including modalities, medications, and physical therapy were reviewed with the patient. After review of previous anaesthesic history and IV conscious sedation the patient was deemed safe to proceed with today?s procedure with IV conscious sedation as ASA class II designation. Safety time-out was performed to confirm patient ID, procedure to be performed and site of procedure. IV sedation was accomplished with a combination of 2mg of Versed was administered by the RN after DO order, titrated to patient comfort during the course of the procedure while the patient remained responsive to all verbal commands In the prone position, following sterile prep and drape of the lumbar region, the L4/5 translaminar space was identified fluoroscopically. The skin was anesthetized via a 25-gauge, 1.5inch needle with 1% lidocaine solution. At this point, a 22-gauge short bevel spinal needle was atraumatically introduced and ad vanced under fluoroscopic guidance into the region of the L4/5 translaminar space. Depth was confirmed on lateral view. Radiological data, including multiple fluoroscopic views of the lumbar spine, reveal a spinal needle at the L4/5 translaminar space. Lateral views then show placement of the needle in the epidural space. Subsequent views show contrast material flowing superiorly and inferiorly in the epidural space. No vascular or intrathecal uptake is observed. At this point, using loss of resistance technique with saline and air, the epidural space was entered. This was confirmed following negative aspiration with injection of approximately 1.5cc of Isovue 200, showing excellent epidural flow without vascular or intrathecal uptake. At this point, 1cc of 1% lidocaine solution combined with 3cc or 20mg of dexamethasone and 6mg betamethasone was injected without incident. The patient tolerated the procedure well without signs or symptoms of complications prior to transfer to the recovery area continued monitoring without incident. The patient was then transferred to the recovery area where they were observed for an appropriate period of time after the injection. The patient reported a VAS score of 6 prior to the procedure and a post- procedure VAS of 0. POST OP INSTRUCTIONS The patient was provided a Pain Log to continue to record their response to the target-specific procedure prior to follow-up visit with their referring physician. Additionally, specific post-injection care instructions and a contact number to our office were provided if concerns arise regarding possible complications associated with the procedure are suspected.
--- NOTE | 2023-03-21 16:44 | PC.NURSE ---
Patient with bilateral LE numbness/weakness upon returning to pre/post room at 1620. Attempted just now to stand with significant weakness remaining. Sedation monitoring completed. Will continue to monitor until strength returns to baseline. Dr. Coleman aware.
--- NOTE | 2023-03-21 17:18 | PC.NURSE ---
Patient back to baseline mobility. Denies weakness and numbness to BLE. Able to stand and walk with SBA for safety without difficulty. Ok to discharge home.
== END 2023-03-21 17:19 | disposition home or self-care (01) ==
PROVIDERS: Family Provider Physician Assistant Medical; PCP Physician Assistant Medical; Referring Provider Physical Medicine & Rehabilitation; Visit Provider Physical Medicine & Rehabilitation
DX: M51.16 Intervertebral disc disorders with radiculopathy, lumbar region (principal); M48.061 Spinal stenosis, lumbar region without neurogenic claudication
CPT/HCPCS: 62323; 99152; J0702; J1100; J2250; J3490

== ENCOUNTER 2023-10-03 14:19 | Outpatient (CLI) | payer MEDICARE, OTHER, SELFPAY ==
[2023-10-03] VITALS (7 sets, daily range): BP systolic 149–190; BP diastolic 69–78; PULSE 74–84; RESP 13–20; TEMP 36.1; O2SAT 98–100
--- NOTE | 2023-10-03 15:00 | DI.RAD.S_ITS ---
PROCEDURE: PAIN L/SI FACET INJ/BLK 1STL INDICATIONS: FACET ARTHOPATHY COMPARISON: [facility], XA, PAIN L/SI FACET INJ/BLK 1STL, 04/29/2021, 14:55. FINDINGS: Fluoroscopic spot filming was performed to verify placement of spinal needles at the right-side of L4 through S1 level(s), as labeled on the films. Appropriate location(s) of the needle tip(s) was confirmed by injection of iodinated contrast. IMPRESSION: Fluoro guidance was provided intraoperatively for right-sided L4 through S1 median branch block performed by ordering physician. Dictated by: Andrew Lopez M.D. on 10/03/2023 at 17:00 Approved by: Andrew Lopez M.D. on 10/03/2023 at 17:00
[2023-10-03] MEDS: MIDAZOLAM 2 MG/2 ML VIAL IV (15:34)
[2023-10-03] MEDS: iopamidoL 15 ML VIAL 3 ML INJ (15:37)
[2023-10-03] MEDS: BUPIVACAINE 0.5% (PF) 10 ML VIAL 2 ML INJ (15:37)
--- NOTE | 2023-10-03 15:47 | P.PCN_ITS ---
Date/Time/Diagnoses Date of procedure: 10/03/23 Time of procedure: 15:47 Pre-procedure diagnosis: 1. FACET ARTHROPATHY Post-procedure diagnosis: same Procedure Notes Procedure: 1. Right L4, L5 and S1 MB BLOCKS LA Indications: Kiley is referred by LUIS MIGUEL Sandoval for treatment of Right Axial LBP. Physician: Duglas Coleman Total Fluoroscopy time (seconds): 8 Total sedation minutes: 10 Complications: none Procedure in detail & Post-procedure care: DESCRIPTION OF PROCEDURE Fluoroscopically guided, contrast-controlled right L4, L5 and S1 medial branch blocks with 0.5cc of 0.5% Marcaine. Following review of allergy and review of potential side effects and complications, including, but not necessarily limited to, infection, allergic reaction, local tissue breakdown, nerve injury, paralysis, stroke and possible , the patient indicated that the patient understood and agreed to proceed. An informed consent document was signed by the patient, witnessed by a nurse, and placed in the patient's chart. After review of previous anaesthesic history and IV conscious sedation the patient was deemed safe to proceed with today?s procedure with IV conscious sedation as ASA class II designation. Safety time-out was performed to confirm patient ID, procedure to be performed and site of procedure. IV sedation was accomplished with a combination of 2mg of Versed was administered by the RN after DO order, titrated to patient comfort during the course of the procedure while the patient remained responsive to all verbal commands In the prone position, following sterile prep and drape of the lumbar region, the right L4, L5 and S1 anatomical location of the medial branch of the dorsal ramus was identified fluoroscopically. Subsequently an anesthetic skin wheal using 1% lidocaine solution was initiated at each of the anatomical spots. Subsequently then a 22-gauge 3.5-inch spinal needle was atraumatically introduced and advanced under fluoroscopic guidance at each of the corresponding sites at the right L4, L5 and S1 MB. After negative aspiration, 0.2 cc of Isovue 200 was injected, confirming placement without vascular or intrathecal uptake. Subsequently then 0.5 cc of 0.5% Marcaine solution was injected at each of the corresponding sites at the right L4, L5 and S1 medial branch locations. The patient tolerated the procedure well without signs or symptoms of complications. The procedure tolerated the procedure well without signs or symptoms of complications prior to transfer to the recovery area continued monitoring without incident. Post-procedure, the patient was monitored initiating provocative activities to measure the amount of relief from block of the facetogenic pain. The patient reported a VAS of 7 prior to the procedure and a post-procedure VAS of 1. It has been a pleasure to assist in the diagnostic and therapeutic care of your patient. POST OP INSTRUCTIONS The patient was provided with a Pain Log to complete over the next several hours and subsequent days prior to the patient's follow up with the ordering physician. If the patient has vending machine host/hostess relief to the solution applied, then they may be a candidate for medial branch rhizotomy. The patient is aware, was provided, once again, with a Pain Log and will follow up with the referring physician for review and clinical correlation.
== END 2023-10-03 16:05 | disposition home or self-care (01) ==
LOC: RAD 14:19
PROVIDERS: Family Provider Physician Assistant Medical; PCP Physician Assistant Medical; Referring Provider Physical Medicine & Rehabilitation; Visit Provider Physical Medicine & Rehabilitation
DX: M47.816 Spondylosis without myelopathy or radiculopathy, lumbar region (principal); M47.817 Spondylosis without myelopathy or radiculopathy, lumbosacral region
CPT/HCPCS: 64493; 64494; 99152; J2250

== ENCOUNTER 2023-12-05 15:13 | Outpatient (CLI) | payer MEDICARE, OTHER, SELFPAY ==
[2023-12-05] VITALS (8 sets, daily range): BP systolic 141–207; BP diastolic 65–96; PULSE 71–88; RESP 14–21; TEMP 36.6; O2SAT 98–100
--- NOTE | 2023-12-05 16:00 | DI.RAD.S_ITS ---
PROCEDURE: PAIN L/SI FACET INJ/BLK 1STL INDICATIONS: FACET ARTHOPATHY COMPARISON: [facility], , PAIN L/SI FACET INJ/BLK 1STL, 10/03/2023, 16:37. FINDINGS: Fluoroscopic spot filming was performed to verify placement of spinal needles at the right L4, L5 and S1 level(s), as labeled on the films. Appropriate location(s) of the needle tip(s) was confirmed by injection of iodinated contrast. IMPRESSION: Intra procedural examination demonstrating appropriate positions of the needles. Dictated by: Jozef Mitchell M.D. on 12/05/2023 at 17:05 Approved by: Jozef Mitchell M.D. on 12/05/2023 at 17:07
[2023-12-05] MEDS: MIDAZOLAM 2 MG/2 ML VIAL IV (16:25)
[2023-12-05] MEDS: iopamidoL 15 ML VIAL 3 ML INJ (16:27)
[2023-12-05] MEDS: LIDOCAINE 2% INJ SDV 5ML 5 ML INJ (16:28)
--- NOTE | 2023-12-05 16:36 | PM.PROC.IR.1 ---
Date/Time/Diagnoses Date of procedure: 01/03/24 Time of procedure: 16:36 Pre-procedure diagnosis: Lumbar Facet Arthropathy Post-procedure diagnosis: same Procedure Notes Procedure: 1. Right L4, L5 and S1 MB BLOCKS SA Indications: Kiley is referred by JANINE Sandoval for treatment of Right Axial LBP. Physician: Duglas Coleman Total Fluoroscopy time (seconds): 5 Total sedation minutes: 10 Complications: none Procedure in detail & Post-procedure care: DESCRIPTION OF PROCEDURE Fluoroscopically guided, contrast-controlled right L4, L5 and S1 medial branch blocks with 0.5cc of 2% Lidocaine. Following review of allergy and review of potential side effects and complications, including, but not necessarily limited to, infection, allergic reaction, local tissue breakdown, nerve injury, paralysis, stroke and possible , the patient indicated that the patient understood and agreed to proceed. An informed consent document was signed by the patient, witnessed by a nurse, and placed in the patient's chart. After review of previous anaesthesic history and IV conscious sedation the patient was deemed safe to proceed with today?s procedure with IV conscious sedation as ASA class II designation. Safety time-out was performed to confirm patient ID, procedure to be performed and site of procedure. IV sedation was accomplished with a combination of 2mg of Versed was administered by the RN after DO order, titrated to patient comfort during the course of the procedure while the patient remained responsive to all verbal commands In the prone position, following sterile prep and drape of the lumbar region, the right L4, L5 and S1 anatomical location of the medial branch of the dorsal ramus was identified fluoroscopically. Subsequently an anesthetic skin wheal using 1% lidocaine solution was initiated at each of the anatomical spots. Subsequently then a 22-gauge 3.5-inch spinal needle was atraumatically introduced and advanced under fluoroscopic guidance at each of the corresponding sites at the right L4, L5 and S1 MB. After negative aspiration, 0.2 cc of Isovue 200 was injected, confirming placement without vascular or intrathecal uptake. Subsequently then 0.5 cc of 2% Lidocaine solution was injected at each of the corresponding sites at the right L4, L5 and S1 medial branch locations. The patient tolerated the procedure well without signs or symptoms of complications. The procedure tolerated the procedure well without signs or symptoms of complications prior to transfer to the recovery area continued monitoring without incident. Post-procedure, the patient was monitored initiating provocative activities to measure the amount of relief from block of the facetogenic pain. The patient reported a VAS of 7 prior to the procedure and a post-procedure VAS of 1. It has been a pleasure to assist in the diagnostic and therapeutic care of your patient. POST OP INSTRUCTIONS The patient was provided with a Pain Log to complete over the next several hours and subsequent days prior to the patient's follow up with the ordering physician. If the patient has operations officer afloat relief to the solution applied, then they may be a candidate for medial branch rhizotomy. The patient is aware, was provided, once again, with a Pain Log and will follow up with the referring physician for review and clinical correlation.
== END 2023-12-05 16:58 | disposition home or self-care (01) ==
PROVIDERS: Family Provider Physician Assistant Medical; PCP Physician Assistant Medical; Referring Provider Physical Medicine & Rehabilitation; Visit Provider Physical Medicine & Rehabilitation
DX: M47.816 Spondylosis without myelopathy or radiculopathy, lumbar region (principal); M47.817 Spondylosis without myelopathy or radiculopathy, lumbosacral region
CPT/HCPCS: 64493; 64494; 64495; 99152; J2250

== ENCOUNTER 2024-04-16 10:18 | Outpatient (CLI) | payer MEDICARE, OTHER, SELFPAY ==
[2024-04-16] VITALS (9 sets, daily range): BP systolic 105–185; BP diastolic 59–86; PULSE 61–76; RESP 16–22; TEMP 36.5; O2SAT 97–100
--- NOTE | 2024-04-16 11:00 | DI.RAD.S_ITS ---
PROCEDURE: PAIN L/S MED/LAT N RFA INDICATIONS: SPONDYLOSIS COMPARISON: [facility], , PAIN L/S MED/LAT N RFA, 06/22/2021, 11:49. FINDINGS: Fluoroscopic spot filming was performed to verify placement of spinal needles at the right L4-5 and L5-S1 level(s), as labeled on the films. Appropriate location(s) of the needle tip(s) was confirmed by injection of iodinated contrast. IMPRESSION: Fluoroscopic guidance utilized for a right L4-5 and L5-S1 RFA. Dictated by: Alex Peres M.D. on 04/16/2024 at 15:16 Approved by: Alex Peres M.D. on 04/16/2024 at 15:17
[2024-04-16] MEDS: MIDAZOLAM 2 MG/2 ML VIAL IV (11:26)
[2024-04-16] MEDS: BUPIVACAINE 0.5% (PF) 10 ML VIAL 5 ML INJ (11:30)
[2024-04-16] MEDS: LIDOCAINE 1% 20 ML 5 ML INJ (11:31)
--- NOTE | 2024-04-16 11:51 | P.PCN_ITS ---
Date/Time/Diagnoses Date of procedure: 04/16/24 Time of procedure: 11:52 Pre-procedure diagnosis: 1. RECALCITRANT FACET ARTHROPATHY Post-procedure diagnosis: same Procedure Notes Procedure: 1. RIGHT L4 AND L5 MEDIAL BRANCH RADIOFREQUENCY NEUROTOMY AND RIGHT S1 DORSAL RAMUS BRANCH RADIOFREQUENCY NEUROTOMY Indications: Kiley is referred by JANINE Sandoval for treatment of facet arthropathy. Physician: Duglas Coleman Total Fluoroscopy time (seconds): 10 Total sedation minutes: 20 Complications: none Procedure in detail & Post-procedure care: DESCRIPTION OF PROCEDURE Right L4 and L5 medial branch radiofrequency neurotomy and right S1 dorsal ramus branch radiofrequency neurotomy under fluoroscopy with conscious sedation. The patient is well known to this clinic having undergone previous facet injections with good but temporary relief. The patient has experienced appropriate, concordant relief with previous facet and median branch blocks but the patient's pain has been recalcitrant to further conservative measures. Therefore, based upon the patient's relief and persistent symptoms, the patient is considered an appropriate candidate for facet rhizotomy. All of the patient's questions regarding the risks versus benefits of the procedure, including, but not limited to, bleeding, infection, temporary as well as lasting nerve injury, paralysis, stroke, and , as well treatment alternatives were answered to satisfaction. After review of previous anaesthesic history and IV conscious sedation the patient was deemed safe to proceed with today?s procedure with IV conscious sedation as ASA class II designation. Safety time-out was performed to confirm patient ID, procedure to be performed and site of procedure. IV sedation was accomplished with a combination of 2mg of Versed was administered by the RN after DO order, titrated to patient comfort during the course of the procedure while the patient remained responsive to all verbal commands. After obtaining informed consent, denial of pertinent drug allergies, as well as being made aware of the potential risks of bleeding, infection, spinal cord trauma, paralysis, temporary and permanent nerve damage, seizure, stroke, and possible , the patient was brought to the fluoroscopy suite and positioned prone on the fluoroscopy table. The lumbar region was prepped with Betadine and covered with a fenestrated drape in the usual sterile fashion. Appropriate monitors applied including pulse oximeter, pulse, and blood pressure for regular monitoring throughout the procedure. After local infiltration using 1% lidocaine, under fluoroscopic guidance, a 10- cm RF insulated needle with a 10-mm active tip was positioned parallel to the junction of the right sacral ala and the superior articulating process where the S1 dorsal ramus resides. Needle placement was confirmed with sensory stimulation at 50 Hz, with motor stimulation of .5v on the right which produced local stimulation without radicular component. The stimulation was then increased to 2v with, once again, only local multifidus stimulation without radicular component. This was then followed by two discreet lesions performed at 80 degrees Celsius for 90 seconds each. The needle was then removed and the identical procedure was performed along the length of the right L5 medial branch with motor stimulation at .7v on the right. The identical procedure was once again performed along the length of the right L4 medial branch with motor stimulation of .5v on the right. The patient tolerated the procedure well without signs or symptoms of complications prior to transfer to the recovery area continued monitoring without incident. The patient was then transferred to the recovery area where they were observed for an appropriate period of time after the injection. The patient was then transferred to the recovery area where they were observed for an appropriate period of time after the injection. The patient reported a VAS score of 8 prior to the procedure and a post- procedure VAS of 0. POST OP INSTRUCTIONS The patient was provided a Pain Log to continue to record the patient's response to the target-specific procedure prior to the patient's follow-up visit with the referring physician. Additionally, specific post-injection care instructions and a contact number to our office were provided if concerns arise regarding possible complications associated with the procedure are suspected.
== END 2024-04-16 12:06 | disposition home or self-care (01) ==
PROVIDERS: Family Provider Physician Assistant Medical; PCP Physician Assistant Medical; Referring Provider Physical Medicine & Rehabilitation; Visit Provider Physical Medicine & Rehabilitation
DX: M47.816 Spondylosis without myelopathy or radiculopathy, lumbar region (principal); M47.817 Spondylosis without myelopathy or radiculopathy, lumbosacral region
CPT/HCPCS: 64635; 64636; 99152; J2250

== ENCOUNTER 2024-08-13 09:49 | Outpatient (CLI) | payer MEDICARE, OTHER, SELFPAY ==
[2024-08-13] VITALS (8 sets, daily range): BP systolic 132–199; BP diastolic 62–85; PULSE 69–84; RESP 14–20; TEMP 36.4; O2SAT 98–100
--- NOTE | 2024-08-13 09:50 | DI.RAD.S_ITS ---
PROCEDURE: PAIN SI JOINT INJECTION INDICATIONS: Right SI joint injection COMPARISON: [facility], , PAIN SI JOINT INJECTION, 04/19/2022, 14:15. FINDINGS/IMPRESSION: Fluoroscopic spot filming was performed to verify placement of spinal needles at the right SI joint level(s), as labeled on the films. Appropriate location(s) of the needle tip(s) was confirmed by injection of iodinated contrast. Dictated by: Jozef Mitchell M.D. on 08/13/2024 at 15:39 Approved by: Jozef Mitchell M.D. on 08/13/2024 at 15:40
[2024-08-13] MEDS: MIDAZOLAM 2 MG/2 ML VIAL IV (11:22)
[2024-08-13] MEDS: BUPIVACAINE 0.5% (PF) 10 ML VIAL 2 ML INJ (11:26)
[2024-08-13] MEDS: BETAMETHASONE 30 MG/5 ML MDV 12 MG INJ (11:27)
[2024-08-13] MEDS: iopamidoL 15 ML VIAL 3 ML INJ (11:27)
--- NOTE | 2024-08-13 11:37 | PM.PROC.IR.1 ---
Date/Time/Diagnoses Date of procedure: 08/13/24 Time of procedure: 11:37 Pre-procedure diagnosis: Sacroiliac joint pain/DJD Post-procedure diagnosis: same Procedure Notes Procedure: Fluoroscopically guided contrast controlled right sacroiliac joint injection Indications: Kiley is referred by LUIS MIGUEL Sandoval for treatment of right sacroiliac joint DJD Physician: Duglas Coleman Total Fluoroscopy time (seconds): 7 Total sedation minutes: 11 Complications: none Procedure in detail & Post-procedure care: DESCRIPTION OF PROCEDURE Fluoroscopically guided, contrast controlled right sacroiliac joint injection Following review of allergies and review of potential side effects and complications, including, but not necessarily limited to, infection, allergic reaction, local tissue breakdown, temporary as well as permanent nerve injury, paralysis, stroke and possible , the patient indicated that they understood and agreed to proceed. An informed consent was signed by the patient, witnessed by a nurse, and placed in the patient's chart. Additionally, other treatment options including modalities, medications, and physical therapy were reviewed with the patient. After review of previous anaesthesic history and IV conscious sedation the patient was deemed safe to proceed with today?s procedure with IV conscious sedation as ASA class II designation. Safety time-out was performed to confirm patient ID, procedure to be performed and site of procedure. IV sedation was accomplished with a combination of 2mg of Versed was administered by the RN after DO order, titrated to patient comfort during the course of the procedure while the patient remained responsive to all verbal commands In the prone position following sterile prep and drape of the pelvic region, the hyper lucency on in the inferior aspect of the sacroiliac joint was identified fluoroscopically the skin was anesthetized be a 25 gauge 1 eventual with approximately 2 cc of 1% lidocaine solution. At this point, a 22 gauge 3 in spinal needle was atraumatically introduced and advanced under fluoroscopic guidance into the inferior aspect of the right sacroiliac joint. Following negative aspiration, approximately 0.3cc of Isovue-300 was injected confirming intra-articular placement without vascular uptake. Radiographic data, including multiple fluoroscopic views of the pelvis, reveals a spinal needle in the sacroiliac joint hyper lucent zone. Subsequent view show flow contrast tear superiorly and inferiorly within the joint capsule without vascular intrathecal uptake. At this point a total of 1cc of 0.5% Marcaine was combined with 1cc of 6 mg of betamethasone was injected without incident. The procedure tolerated the procedure well without signs or symptoms of complications prior to transfer to the recovery area continued monitoring without incident. The patient was then transferred to the recovery area with a bur observed for an appropriate time after the injection. The patient reverted a vas score of 7 prior to the procedure and post-procedure vas of 1. POSTOP INSTRUCTIONS The patient was provided with a pain like to continue to record the patient's response to the target specific procedure prior to the patient's follow-up visit with the referring physician. Additionally, specific post injection care instructions and a contact number to our office were provided if concerns arise regarding the possible complications associated with procedure are suspected.
== END 2024-08-13 11:57 | disposition home or self-care (01) ==
LOC: RAD 09:50
PROVIDERS: Family Provider Physician Assistant Medical; PCP Physician Assistant Medical; Referring Provider Physical Medicine & Rehabilitation; Visit Provider Physical Medicine & Rehabilitation
DX: M53.3 Sacrococcygeal disorders, not elsewhere classified (principal); M46.1 Sacroiliitis, not elsewhere classified
CPT/HCPCS: 27096; 99152; J0702; J2250

== ENCOUNTER 2025-05-29 13:00 | Outpatient (CLI) | payer MEDICARE, OTHER, SELFPAY ==
[2025-05-29] VITALS (12 sets, daily range): BP systolic 145–180; BP diastolic 70–96; PULSE 61–77; RESP 16–27; TEMP 36.4; O2SAT 98–100
[2025-05-29] MEDS: MIDAZOLAM 2 MG/2 ML VIAL IV (14:42)
[2025-05-29] MEDS: BETAMETHASONE 30 MG/5 ML MDV 12 MG INJ (14:48)
[2025-05-29] MEDS: BETAMETHASONE 30 MG/5 ML MDV 6 MG INJ (14:50)
--- NOTE | 2025-05-29 15:04 | P.PCN_ITS ---
Date/Time/Diagnoses Date of procedure: 05/29/25 Time of procedure: 15:04 Pre-procedure diagnosis: 1. FORAMINAL STENOSIS WITH LE SYMPTOMS Post-procedure diagnosis: same Procedure Notes Procedure: 1. FLUOROSCOPICALLY GUIDED CONTRAST CONTROLLED TRANSFORAMINAL EPIDURAL STEROID INJECTION - RIGHT L4/5 TFESI Indications: Kiley is referred by JANINE Sandoval for treatment of Foraminal Stenosis with Right LE Symptoms Physician: Duglas Coleman Total Fluoroscopy time (seconds): 17 Total sedation minutes: 17 Complications: none Procedure in detail & Post-procedure care: FINDINGS Foraminal Nerve Root Compression secondary to disc disease and facet hypertrophy DESCRIPTION OF PROCEDURE Following review of allergy and review of potential side effects and complications, including, but not necessarily limited to, infection, allergic reaction, local tissue breakdown, stroke, temporary or permanent nerve injury, paralysis, and possible , the patient indicated that the patient understood and agreed to proceed. An informed consent document was signed by the patient, witnessed by a nurse, and placed in the patient's chart. Additionally, other treatment options including medications, modalities, and physical therapy were reviewed with the patient. After review of previous anaesthesic history and IV conscious sedation the patient was deemed safe to proceed with today?s procedure with IV conscious sedation as ASA class II designation. Safety time-out was performed to confirm patient ID, procedure to be performed and site of procedure. IV sedation was accomplished with a combination of 2mg of Versed was administered by the RN after DO order, titrated to patient comfort during the course of the procedure while the patient remained responsive to all verbal commands In the prone position following sterile prep and drape of the lumbar region, the right L4/5 posterior neuroforamen was identified fluoroscopically. The skin was anesthetized via a 25-gauge 1.5-inch needle with 1% lidocaine solution. At this point, a 25-gauge 3.5-inch spinal needle was atraumatically introduced and advanced under fluoroscopic guidance through the posterior right L4/5 neuroforamen to approximately the anterior aspect of the canal. Depth was confirmed on lateral view. Following negative aspiration, injection of approximately 1.5cc of Isovue 200 under live fluoroscopy in the AP view con firmed excellent flow along the nerve root, into the epidural space without vascular or intrathecal uptake observed Radiological data, including multiple fluoroscopic views of the lumbosacral spine, reveal a spinal needle at the right L4/5 posterior neuroforamen. Subsequent views show flow of contrast material flowing superiorly and inferiorly along the nerve root confirming epidural flow. Subsequently, a test dose of 1.5 cc of 0.25%marcaine solution was administered and patient was observed for two minutes for signs or symptoms of complications, including abdominal pain, shortness of breath, bilateral upper or lower extremity weakness, nausea and vomiting, prior to steroid injection. At this point, a total of 3cc or 10mg of dexamethasone and 12mg of betamethasone was injected without incident. The procedure tolerated the procedure well without signs or symptoms of complications prior to transfer to the recovery area continued monitoring without incident. The patient was then transferred to the recovery area where they were observed for an appropriate time after the injection. The patient reported a VAS score of 8 prior to the procedure and a post- procedure VAS of 1. POST OP INSTRUCTIONS The patient was provided a Pain Log to continue to record their response to the target-specific procedure prior to follow-up visit with their referring physician. Additionally, specific post-injection care instructions and a contact number to our office were provided if concerns arise regarding possible complications associated with the procedure are suspected.
--- NOTE | 2025-05-29 15:05 | PM.PROC.IR.1 ---
Date/Time/Diagnoses Date of procedure: 05/29/25 Time of procedure: 15:05 Pre-procedure diagnosis: Sacroiliac joint pain/DJD Post-procedure diagnosis: same Procedure Notes Procedure: Fluoroscopically guided contrast controlled right sacroiliac joint injection Indications: Kiley is referred by JANINE Sandoval for treatment of right sacroiliac joint DJD Physician: Duglas Coleman Total Fluoroscopy time (seconds): 17 Total sedation minutes: 17 Complications: none Procedure in detail & Post-procedure care: DESCRIPTION OF PROCEDURE Fluoroscopically guided, contrast controlled right sacroiliac joint injection Following review of allergies and review of potential side effects and complications, including, but not necessarily limited to, infection, allergic reaction, local tissue breakdown, temporary as well as permanent nerve injury, paralysis, stroke and possible , the patient indicated that they understood and agreed to proceed. An informed consent was signed by the patient, witnessed by a nurse, and placed in the patient's chart. Additionally, other treatment options including modalities, medications, and physical therapy were reviewed with the patient. After review of previous anaesthesic history and IV conscious sedation the patient was deemed safe to proceed with today?s procedure with IV conscious sedation as ASA class II designation. Safety time-out was performed to confirm patient ID, procedure to be performed and site of procedure. IV sedation was accomplished with a combination of 2mg of Versed was administered by the RN after DO order, titrated to patient comfort during the course of the procedure while the patient remained responsive to all verbal commands In the prone position following sterile prep and drape of the pelvic region, the hyper lucency on in the inferior aspect of the sacroiliac joint was identified fluoroscopically the skin was anesthetized be a 25 gauge 1 eventual with approximately 2 cc of 1% lidocaine solution. At this point, a 22 gauge 3 in spinal needle was atraumatically introduced and advanced under fluoroscopic guidance into the inferior aspect of the right sacroiliac joint. Following negative aspiration, approximately 0.3cc of Isovue-300 was injected confirming intra-articular placement without vascular uptake. Radiographic data, including multiple fluoroscopic views of the pelvis, reveals a spinal needle in the sacroiliac joint hyper lucent zone. Subsequent view show flow contrast tear superiorly and inferiorly within the joint capsule without vascular intrathecal uptake. At this point a total of 1cc of 0.5% Marcaine was combined with 2cc of 12mg of betamethasone was injected without incident. The procedure tolerated the procedure well without signs or symptoms of complications prior to transfer to the recovery area continued monitoring without incident. The patient was then transferred to the recovery area with a bur observed for an appropriate time after the injection. The patient reverted a vas score of 7 prior to the procedure and post-procedure vas of 1. POSTOP INSTRUCTIONS The patient was provided with a pain like to continue to record the patient's response to the target specific procedure prior to the patient's follow-up visit with the referring physician. Additionally, specific post injection care instructions and a contact number to our office were provided if concerns arise regarding the possible complications associated with procedure are suspected.
== END 2025-05-29 17:23 | disposition home or self-care (01) ==
PROVIDERS: PCP Physician Assistant Medical; Referring Provider Physical Medicine & Rehabilitation; Visit Provider Physical Medicine & Rehabilitation
DX: M48.061 Spinal stenosis, lumbar region without neurogenic claudication (principal); M51.16 Intervertebral disc disorders with radiculopathy, lumbar region; M47.26 Other spondylosis with radiculopathy, lumbar region; M53.3 Sacrococcygeal disorders, not elsewhere classified; M96.1 Postlaminectomy syndrome, not elsewhere classified
CPT/HCPCS: 27096; 64483; 99152; J0702; J1100; J2250